=== PATIENT | male | born 1940 | race Caucasian/White ===

== ENCOUNTER 2017-12-20 17:37 | Inpatient (IN) | payer MEDICARE, MEDICAID ==
--- NOTE | 2017-12-20 17:59 | ED Physician Chart ---
ED Chief Complaint/HPI - Patient Information Date Seen:: 12/20/17 Time Seen:: 17:30 Chief Complaint:: AMS History of Present Illness:: onset x one day of ALOC and AMS with abnormal lab tests today; no report of trauma, H/As, S/T, neck pain, cough, C/P, SOB, Abd. Pain, A/N/V/D/C, fever, chills, or urinary s/s Historian:: Patient, EMS Review:: Nurse's Note Reviewed, Old Chart Reviewed, EMS run form Reviewed ED Review of Systems - Review of Systems General/Constitutional: Fever, No chills, No weight loss, No weakness, No diaphoresis, No edema, No loss of appetite Skin: No skin lesions, No rash, No bruising Head: No headache, No light-headedness Eyes: No loss of vision, No pain, No diplopia ENT: No earache, No nasal drainage, No sore throat, No tinnitus Neck: No neck pain, No swelling, No thyromegaly, No stiffness, No mass noted Cardio Vascular: No chest pain, No palpitations, No PND, No orthopnea, No edema Pulmonary: No SOB, No cough, No sputum, No wheezing GI: No nausea, No vomiting, No diarrhea, No pain, No melena, No hematochezia, No constipation, No hematemesis G/U: No dysuria, No frequency, No hematuria, No nacturia Musculoskeletal: No bone or joint pain, No back pain, No muscle pain Endocrine: No polyuria, No polydipsia Psychiatric: No prior psych history, No depression, No anxiety, No suicidal ideation, No homicidal ideation, No auditory hallucination, No visual hallucination Hematopoietic: No bruising, No lymphadenopathy Allergic/Immuno: No urticaria, No angioedema Neurological: No syncope, No focal symptoms, No weakness, No paresthesia, No headache, No seizure, No dizziness, Confusion, No vertigo ED Past Medical History - Past Medical History Obtainable: Yes Past Medical History: HTN, Dyslipidemia, Arthritis, Dementia Family History: HTN Social History: Non Smoker, No Alcohol, No Drug Use, Single, Care Facility Surgical History: PEG/GTube Psychiatricy History: Dementia Medication: Reviewed Family Medical History - Family Member Mother History Unknown: Yes ED Physical Exam - Physical Examination General/Constitutional: Awake, Well-developed, well-nourished, Alert, No distress, GCS 15, Non-toxic appearing, Ambulatory Head: Atraumatic Eyes: Lids, conjuctiva normal, PERRL, EOMI Skin: Nl inspection, No rash, No skin lesions, No ecchymosis, Well hydrated, No lymphadenopathy ENMT: External ears, nose nl, TM canals nl, Nasal exam nl, Lips, teeth, gums nl , Oropharynx nl, Tonsils nl Neck: Nontender, Full ROM w/o pain, No JVD, No nuchal rigidity, No bruit, No mass, No stridor Respiratory: Nl effort/Exclusion Other Respiratory comments:: Lungs: + Rales and Rhonchi Cardio Vascular: RRR, No murmur, gallop, rubs, NL S1 S2, Carotid/Femoral/Distal pulses equal bilaterally GI: No tenderness/rebounding/guarding, No organomegaly, No hernia, Normal BS's, Nondistended, No mass/bruits, No McBurney tenderness : No CVA tenderness Extremities: No tenderness or effusion, Full ROM, normal strength in all extremities, No edema, Normal digits & nails Neuro/Psych: Alert/oriented, DTR's symmetric, Normal sensory exam, Normal motor strength, Judgement/insight normal, Mood normal, Normal gait, No focal deficits Misc: Normal back, No paraspinal tenderness ED Labs/Radiology/EKG Results - Lab Results Comments:: WBC: 12.8; H/H: + Anemia; BUN: 88; Cr: 2.5; Na+: 132; K+: 5.4 - Radiology Results Comments:: CXR: + Infiltrate - EKG Interpretations EKG Time:: 18:30 Rate & Rhythm: 77; NSR Comments:: non-specific st-t changes ED Septic Shock - . Is Septic Shock (SBP<90, OR Lactate>4 mmol\L) present?: No ED Reassessment (Disposition) - Reassessment Reassessment Condition:: Improved - Diagnosis Diagnosis:: Dx: Anemia; Leukocytosis; AMS; ALOC; PNA; Sepsis; Hyperkalemia; Hyponatremia; Dehydration; Renal failure; Pre-Renal Azotemia - Aftercare/Follow up Instructions Aftercare/Follow-Up Instructions:: Counseled pt regarding lab results/diagnosis & need follow up, Counseled pt & family regarding lab results/diagnosis & need follow up - Patient Disposition Discharge/Transfer:: Acute Care w/in this hosp Accepting Physician:: Dr. Jamin Adams Time Called:: 1949 Time Responded:: 19:50 Admitted to:: Med/Surg Spoke to:: Dr. Jamin Adams Admitting Medical Physician:: Dr. Jamin Adams Condition at Disposition:: Stable, Improved
[2017-12-20 18:38] LABS: % BASOPHILS 0.5 % (0.0-2.0); % EOSINOPHILS 1.3 % (0.0-5.0); % LYMPHOCYTES 11.5 % (20.0-50.0); % NEUTROPHILS 79.7 % (40.0-80.0); BASOPHILE ABSOLUTE 0.1 Th/cumm (0-0.2); EOSINOPHILE ABSOLUTE 0.2 Th/cmm (0.1-0.4); HEMATOCRIT 33.9 % (41.0-60); HEMOGLOBIN 11.3 gm/dL (12-16); LYMPHOCYTE ABSOLUTE 1.5 Th/cmm (1.5-3.0); MEAN CELL VOLUME 87.7 fl (80-99); MEAN CORPUSCULAR HEMOGLOBIN 29.3 pg (27.0-31.0); MEAN CORPUSCULAR HGB CONC 33.4 pg (28.0-36.0); MONOCYTE ABSOLUTE 0.9 Th/cmm (0.3-1.0); NEUTROPHILE ABSOLUTE 10.1 Th/cmm (1.8-8.0); PLATELET COUNT 401 Th/cmm (150-400); RED BLOOD COUNT 3.87 Mil/cmm (3.80-5.80); RED CELL DISTRIBUTION WIDTH 13.2 % (11.5-20.0)
[2017-12-20 18:46] LABS: WHITE BLOOD COUNT 12.8 Th/cmm (4.8-10.8)
[2017-12-20 19:03] LABS: ALBUMIN 3.8 gm/dL (4.2-5.5); ALKALINE PHOSPHATASE 115 U/L (34-104); ANION GAP 14.9 (7.0-16.0); BILIRUBIN,TOTAL 0.4 mg/dL (0.3-1.0); CALCIUM SERUM 9.3 mg/dL (8.6-10.3); CARBON DIOXIDE 24.5 mEq/L (21.0-31.0); CHLORIDE 98 mEq/L (98-107); CREATININE - SERUM 2.5 mg/dL (0.7-1.3); GLUCOSE 163 mg/dL (70-105); POTASSIUM SERUM 5.4 mEq/L (3.5-5.1); SGOT 30 U/L (13-39); SGPT/ALT 60 U/L (7-52); SODIUM SERUM 132 mEq/L (136-145); TOTAL PROTEIN,SERUM 7.6 gm/dL (6.0-8.3)
[2017-12-20 19:04] LABS: CREATININE KINASE 44 U/L (30-223)
[2017-12-20 19:19] LABS: INR 0.94 (0.5-1.4); PROTHROMBIN TIME (TEST) 9.8 SECONDS (9.5-11.5)
[2017-12-20 19:31] LABS: URINE MICROSCOPIC INDICATED? YES; URINE SOURCE MIDSTREAM
[2017-12-20 19:35] LABS: URINE BILIRUBIN NEGATIVE (NEGATIVE); URINE BLOOD MODERATE (NEGATIVE); URINE GLUCOSE (UA) NEGATIVE (NEGATIVE); URINE KETONE TRACE mg/dL (NEGATIVE); URINE LEUKOCYTE ESTERASE MODERATE (NEGATIVE); URINE NITRATE NEGATIVE (NEGATIVE); URINE PH 5.5 (4.6 - 8.0); URINE PROTEIN 100 mg/dL (NEGATIVE); URINE UROBILINOGEN 0.2 E.U./dL (0.2 - 1.0)
[2017-12-20 19:58] LABS: BUN - UREA NITROGEN 88 mg/dL (7-25)
[2017-12-20] MEDS ORDERED: Levofloxacin 500mg/100mL 500 MG/100 ML BAG IV ONE ×2 (20:07→20:09)
[2017-12-20 20:32] LABS: URINE COLOR YELLOW
[2017-12-20 20:34] LABS: URINE CLARITY CLOUDY (CLEAR)
[2017-12-20 20:39] LABS: URINE EPITHELIAL CELLS NONE SEEN /lpf (FEW); URINE WBC >100 /hpf (0-5)
[2017-12-20 20:40] LABS: URINE BACTERIA MODERATE /hpf (NONE SEEN)
[2017-12-20] MEDS: Azithromycin 500 MG in Sodium Chloride 0.9% 250 ML IV SCH (23:39)
[2017-12-21] MEDS: cefTRIAXone 1 GM in Sodium Chloride 0.9% 50 ML IV SCH (05:34)
[2017-12-21] MEDS ORDERED: Sodium Chloride 0.9% 1,000 ML IV SCH (06:20)
[2017-12-21 06:37] VITALS: BP 114/50
--- NOTE | 2017-12-21 08:07 | Diagnostic Imaging Report ---
CHEST X-RAY: AP view INDICATION: pain COMPARISON: None FINDINGS: Mild chronic interstitial lung changes are noted. There is no focal consolidation or pleural effusions The heart is normal in size. There is minimal atherosclerosis of the aortic arch. Degenerative changes of the spine are noted. IMPRESSION: No focal consolidation identified. Mild chronic lung changes are noted. Minimal atherosclerosis of the aortic arch.
[2017-12-21] MEDS: INSULIN ASPART SLIDING SCALE 100 UNITS/ML UNIT SUBQ SCH ×3 (08:54→17:20)
[2017-12-21] MEDS ORDERED: Pneumococcal Vaccine 0.5 mL Vial IM ONE (10:00)
--- NOTE | 2017-12-21 10:47 | History and Physical ---
History of Present Illness - HPI Chief Complaint: Altered mental status HPI: A 77 year male with a past medical history of hypertension, hyperlipidemia, arthritis, coronary artery disease, dementia brought to the hospital for altered mental status, with abnormal labs. His WBC count 14,700 and has history of OCD positive. Chest x-ray also showed mild left lower lobe infiltrate. Urinalysis also showed pyuria and bacteriuria. Patient was started on levofloxacin. On initial evaluation, his temperature was 97.8F and WBC count was 12,800. 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: Dementia Musculoskeletal: Report: Osteoarthritis Family Medical History - Family Member Mother History Unknown: Yes Hx Family Hypertension: Yes (per ER MD notes) Social History Smoke: No Alcohol: None Drugs: None Lives: Retirement Domestic Violence: Negative - Medications Home Medications: Home Medication Medication Instructions Recorded Type Acetaminophen [Tylenol] 650 mg GT Q4HR PRN 12/20/17 History Albuterol/Ipratropium Neb [Duoneb 3 ml HHN Q4HR PRN 12/20/17 History Neb] Amino Acids/Protein Hydrolys 30 ml GT DAILY 12/20/17 History [Pro-Stat Sugar Free 887 ml] Aspirin [Aspirin Chewable] 81 mg GT DAILY 12/20/17 History Bisacodyl [Dulcolax 10 Mg Supp] 10 mg RC DAILY PRN 12/20/17 History Celecoxib [Celebrex] 200 mg GT BID 12/20/17 History Docusate Sodium [Colace] 100 mg GT BID 12/20/17 History Enalapril Maleate 10 mg GT DAILY 12/20/17 History Famotidine [Pepcid] 20 mg GT DAILY 12/20/17 History Ferrous Sulfate 330 mg GT BID 12/20/17 History Fleet Enema [Fleet Enema] 135 ml RC Q48H PRN 12/20/17 History Folic Acid/Vit Bcomp,C [Laurie-Agustin 1 tab GT DAILY 12/20/17 History Tablet] Lactobacillus Acidophilus 1 each PO DAILY 12/20/17 History [Acidophilus] Levothyroxine [Synthroid] 0.1 mg GT QDAC 12/20/17 History Magnesium Hydroxide [Milk of 30 ml GT HS PRN 12/20/17 History Magnesia] Magnesium Hydroxide [Milk of 30 ml GT Q72H PRN 12/20/17 History Magnesia] Memantine HCl 10 mg GT Q12H 12/20/17 History Sennosides A and B [Senna] 2 tab GT HS 12/20/17 History Zinc Sulfate 220 mg GT DAILY 12/20/17 History - Allergies Allergies/Adverse Reactions: Allergies Allergy/AdvReac Type Severity Reaction Status Date / Time No Known Allergies Allergy Verified 12/20/17 17:57 Review of Systems - Review of Systems Constitutional: Report: No Significant Eyes: Report: No Significant ENT: Report: No Significant Respiratory: Report: No Significant Cardiovascular: Report: No Significant Gastrointestinal: Report: No Significant Genitourinary: Report: No Significant Musculoskeletal: Report: No Significant Skin: Report: No Significant Neurological: Report: No Significant, Confusion Physical Exam - Physical Exam HEENT: Report: Ears Nose Throat within normal limits Neck: Report: Within normal limits Cardiovascular Systems: Report: +s1/s2 noted Respiratory: Report: Breath Sounds are within normal limits Abdomen: Report: Non-tender to palpation Back: Report: Inspection of back is within normal limits. Extremities: Report: Non-tender to palpation. Skin: Report: Color of skin is within normal limits Neuro/Psych: Report: Mood affect is within normal limits - Lab Results All Lab Results last 24 hours: Laboratory Results - last 24 hr 12/21/17 05:54 POC Glucose 189 H - Assessment Assessment: Current Active Problems Problem Status Onset ELEVATED WBC WITH COUGH Acute 1. Left lower lobe pneumonia. 2. UTI. 3. Leukocytosis. 4. Hypertension. 5. Hyperlipidemia 6. Dementia. 7. Chronic lung changes. - Plan Plan: Start Rocephin and the Zithromax. Continue same medication. Consults: Dr. Roshan Adams, pulmonary for chronic lung changes. And Dr. Adams, cardiology consult for carotid disease and hypertension.
[2017-12-21] MEDS: Albuterol/Ipratropium Neb 3 ML AERS HHN SCH ×2 (15:15→19:19)
[2017-12-21 16:04] LABS: EOSINOPHIL SMEAR SOURCE URINE; EOSINOPHILS SMEAR COUNT NONE SEEN (NONE SEEN)
[2017-12-21] MEDS: Sodium Chloride 0.9% 1,000 ML IV SCH (17:27)
[2017-12-21] MEDS: Azithromycin 500 MG in Sodium Chloride 0.9% 250 ML IV SCH (22:32)
--- NOTE | 2017-12-21 23:56 | Consultation ---
DATE OF CONSULTATION: 12/21/[address] Juwan Adams. HISTORY AND PHYSICAL: This is a 77-year-old male patient who was transferred from [facility] with respiratory failure. The patient was found to have pneumonia, urinary tract infection. The patient also complained of some chest pain at this time. Cardiac consult is requested. PAST MEDICAL HISTORY: Angina, iron-deficiency anemia, diabetes mellitus type 2, diabetic CKD stage 3, hypertension, schizophrenia, dysphagia with PEG placement, protein-calorie malnutrition, hypothyroidism. FAMILY HISTORY: Unremarkable. SOCIAL HISTORY: No history of smoking, alcohol abuse. ALLERGIES: No known allergies. PHYSICAL EXAMINATION: VITAL SIGNS: Blood pressure 130/80, pulse 70, respirations 20. HEAD: Normocephalic. No lumps or bumps. EYES: Pupils equal, reactive to light. Fundi show AV nicking, sclerae white, conjunctivae pink. NECK: Carotid 2+. Normal upstroke. JVD flat. Thyroid not palpable. Lymph nodes not palpable. CHEST: Shows increased AP diameter. No kyphosis, scoliosis. LUNGS: Bilateral bronchovesicular breath sounds. HEART: PMI fifth intercostal space with lateral to midclavicular line. S1, S2. No S3, S4, soft systolic murmur. ABDOMEN: Soft. Liver, spleen not palpable. The patient has a PEG in place. NEUROLOGIC: Unremarkable. EXTREMITIES: Peripheral pulses 2+. No pedal edema. CLINICAL IMPRESSION: Pneumonia, urinary tract infection, angina, iron deficiency anemia, diabetes mellitus type 2, diabetic chronic kidney disease stage 3, hypertension, schizophrenia, dysphagia with PEG placement, protein-calorie malnutrition, hypothyroidism. PLAN: We will get EKG, echocardiogram, IV antibiotics and get BNP level. Please monitor the patient closely on telemetry bed. JOB# [id number]
[2017-12-22] MEDS: INSULIN ASPART SLIDING SCALE 100 UNITS/ML UNIT SUBQ SCH ×4 (01:35→18:00)
[2017-12-22] MEDS: Sodium Chloride 0.9% 1,000 ML IV SCH ×3 (01:36→22:34)
--- NOTE | 2017-12-22 02:08 | Progress Notes ---
DATE: 12/21/2017 PULMONARY CONSULTATION REASON FOR CONSULTATION: Abnormal chest x-ray. CONSULT NOTE: This is a 77-year-old gentleman who basically has been admitted up here because of suspected pneumonia as well as shortness of breath and also history of fever and leukocytosis. The patient is awake, alert, quite confused. Meaningful history from the patient is not available to me as he only mumbles. No other medical illness related symptomatology could be obtained. PAST MEDICAL HISTORY: History of dementia, history of hypertension, history of diabetes type 2, history of chronic renal failure, otherwise unremarkable. SMOKING AND ALLERGIC HISTORY: Not available at this particular time. PHYSICAL EXAMINATION: GENERAL: This is an elderly looking gentleman, mumbling, no respiratory distress, etc. VITAL SIGNS: The patient's recorded vitals, temperature is 98.0, blood pressure 120/60, saturation 96. HEENT: Examination of the head is essentially unremarkable. Pupils appear to be equal and reacting to light. Conjunctivae slightly pallor. Mouth shows edentulous with coated tongue. NECK: No nodes in the neck could be palpated. CHEST: Shows occasional secretory noise with diminished air entry. HEART: Regular. EXTREMITIES: Show right upper extremities with lot of contractures of the hands and no peripheral edema. LABORATORY DATA: The patient's chest x-ray shows some heavy bronchovascular marking on the left base, appears to be probably chronic, though acute cannot be ruled out. The patient's white count is 12.8. BUN is 28 and creatinine is 2.5. Glucose is 163. Urine does show some blood with elevated white count with moderate bacteria. IMPRESSION: 1. The patient has abnormal chest x-ray, not too sure whether this is acute on chronic. 2. The patient is quite dehydrated. 3. Possibly urosepsis with history of underlying Alzheimer's. 4. Dysphagia. 5. Aphasia. PLANS AND SUGGESTIONS: Hydrate the patient. We will give aggressive respiratory care. Continue Rocephin and Zithromax. After hydration, possibly repeat chest x-ray and see how he does and go from there. JOB# [id number]
[2017-12-22 05:34] LABS: % EOSINOPHILS 4.8 % (0.0-5.0); % LYMPHOCYTES 18.5 % (20.0-50.0); % MONOCYTES 10.4 % (2.0-10.0); % NEUTROPHILS 65.3 % (40.0-80.0); BASOPHILE ABSOLUTE 0.1 Th/cumm (0-0.2); EOSINOPHILE ABSOLUTE 0.4 Th/cmm (0.1-0.4); HEMATOCRIT 28.7 % (41.0-60); HEMOGLOBIN 9.7 gm/dL (12-16); LYMPHOCYTE ABSOLUTE 1.4 Th/cmm (1.5-3.0); MEAN CELL VOLUME 87.1 fl (80-99); MEAN CORPUSCULAR HEMOGLOBIN 29.4 pg (27.0-31.0); MEAN CORPUSCULAR HGB CONC 33.7 pg (28.0-36.0); MEAN PLATELET VOLUME 7.6 fl; MONOCYTE ABSOLUTE 0.8 Th/cmm (0.3-1.0); NEUTROPHILE ABSOLUTE 4.9 Th/cmm (1.8-8.0); PLATELET COUNT 301 Th/cmm (150-400); RED BLOOD COUNT 3.29 Mil/cmm (3.80-5.80); RED CELL DISTRIBUTION WIDTH 13.2 % (11.5-20.0); WHITE BLOOD COUNT 7.6 Th/cmm (4.8-10.8)
[2017-12-22 05:45] LABS: ANION GAP 10.7 (7.0-16.0); BUN - UREA NITROGEN 47 mg/dL (7-25); CALCIUM SERUM 8.7 mg/dL (8.6-10.3); CARBON DIOXIDE 25.4 mEq/L (21.0-31.0); CHLORIDE 109 mEq/L (98-107); CREATININE - SERUM 1.4 mg/dL (0.7-1.3); GLUCOSE 104 mg/dL (70-105); MAGNESIUM 2.3 mg/dL (1.9-2.7); POTASSIUM SERUM 4.1 mEq/L (3.5-5.1); SODIUM SERUM 141 mEq/L (136-145); URIC ACID 7.7 mg/dL (4.4-7.6)
[2017-12-22] MEDS: cefTRIAXone 1 GM in Sodium Chloride 0.9% 50 ML IV SCH (07:04)
[2017-12-22] MEDS: Albuterol/Ipratropium Neb 3 ML AERS HHN SCH ×4 (07:17→19:05)
--- NOTE | 2017-12-22 08:26 | Consultation ---
DATE OF CONSULTATION: 12/21/2017 FRONT DESK SPECIALIST: Arron Leggett MD REASON FOR CONSULTATION: Worsening kidney function, electrolyte imbalance and fluid management. HISTORY OF PRESENT ILLNESS: This is a 77-year-old male with past medical history of chronic kidney disease, who was brought in because of altered level of consciousness. One day prior to admission, the patient was noted to have progressive altered mental status. His chest x-ray revealed mild left lower lobe infiltrate, urinalysis was suggestive of UTI. He had a CBC done, which revealed a white count of 14.7, and also stool for C. diff was positive. A few hours prior to admission, his condition deteriorated and he was brought to Emergency Room. His white count was 12.8. Chest x-ray revealed no focal consolidation. Shiga toxin 2 were negative. Urinalysis confirmed the presence of a complicated UTI. Labs drawn at [facility] showed a BUN/creatinine of 72/1.83. However, labs drawn at the Emergency Room revealed a BUN/creatinine of 88/2.5, sodium of 132, potassium of 5.4. He had no history of nausea and vomiting. No recent diarrhea. PAST MEDICAL HISTORY: 1. Chronic kidney disease. 2. History of metabolic encephalopathy. 3. Coronary artery disease. 4. Anemia of chronic disease. 5. Type 2 diabetes mellitus. 6. Essential hypertension. 7. Hyponatremia. 8. Schizophrenia. 9. Dementia without behavioral disturbance. 10. Hypothyroidism. 11. GERD with esophagitis. CURRENT MEDICATIONS: He is currently on acetaminophen, azithromycin, ceftriaxone, lorazepam. ALLERGIES: No known drug allergies. SOCIAL AND FAMILY HISTORY: I was not able to obtain directly from the patient because of his dementia. REVIEW OF SYSTEMS: Again, I was not able to decipher directly from the patient because of his confusion. PHYSICAL EXAMINATION: GENERAL: The patient is awake, but confused, talkative. VITAL SIGNS: Blood pressure is 120/60, pulse is 80, temperature 97.3 degrees. SKIN: Poor turgor, warm, no rash, no jaundice appreciated. HEENT: Head normocephalic, atraumatic. Eyes, extraocular muscles intact. Pupils equal, round, and reactive to light and accommodates. Anicteric sclerae. Pale conjunctivae. Nose, midline nasal septum. Mouth; dry mucosa, poor dentition. NECK: Supple, no adenopathy, no thyromegaly, no bruits. Trachea palpated in the midline. CHEST AND CARDIOVASCULAR SYSTEM: S1, S2. No rub, murmur nor gallop appreciated. Point of maximal impulse fifth intercostal space, left midclavicular line. No abdominal or femoral bruits appreciated. LUNGS: Equal expansion. No use of accessory muscles. No supraclavicular retractions. Decreased breath sounds, few rhonchi, but no rales nor wheezes appreciated. ABDOMEN: Mildly globular, soft. Positive for bowel sounds. No bruits either diastolic or systolic. RECTAL: Lax sphincter tone. GENITOURINARY: Normal appearing male genitalia. MUSCULOSKELETAL: No effusions present in his joints, but unable to assess his range of motion. EXTREMITIES: No evidence of edema, cyanosis nor clubbing with palpable femoral, but unable to fully appreciate popliteal and dorsalis pedis pulses. NEUROLOGIC: The patient as mentioned is awake, but remains confused, so I was not able to pursue further my neuro exam. LABORATORY DATA: Labs did reveal sodium 132, potassium 5.4, chloride 98, bicarb 24, BUN 88, creatinine 2.5, glucose 163, calcium is 9.3, albumin 3.8. White count 12.8, hemoglobin 11.3, hematocrit 33.9, platelets 401. IMPRESSION: 1. Acute kidney injury on chronic kidney disease. The patient had altered mental status for several days. Even though, he had G-tube feeding, this may not be enough to replenish both sensible and insensible fluid losses. He had developed prerenal azotemia. Physical exam revealed poor skin turgor, dry oral mucosa and lab revealed very concentrated urine. He developed dehydration, which led to progression of prerenal azotemia to acute tubular injury. He also has underlying complicated urinary tract infection, which could lead to development of acute interstitial nephritis. 2. Altered level of consciousness, likely metabolic encephalopathy secondary to ongoing sepsis. 3. Sepsis secondary to complicated urinary tract infection. 4. Chronic hyponatremia secondary to syndrome of inappropriate antidiuretic hormone. 5. Hyperkalemia secondary to kidney failure. 6. Coronary artery disease. 7. Anemia of chronic disease. 8. Type 2 diabetes mellitus with chronic kidney disease. 9. Essential hypertension with chronic kidney disease. 10. Schizophrenia. PLAN: 1. Renal ultrasound. 2. Urine spot sodium, eosinophils and creatinine. 3. Urine microalbumin to creatinine ratio. 4. Serum osmolarity along with uric acid. 5. Continue IV fluids. 6. Follow up electrolytes. 7. Kayexalate as needed. [facility]# [id number]
--- NOTE | 2017-12-22 09:57 | Diagnostic Imaging Report ---
Portable chest x-ray Time: 0905 hours History: Pneumonia COMPARISON to prior study 12/20/2017 Findings: Allowing for portable technique the heart size is normal. No focal pulmonary parenchymal processes. No hilar or mediastinal abnormalities. Impression: No acute abnormalities.
[2017-12-22 11:11] LABS: ALLEN TEST P
[2017-12-22 11:29] LABS: CREATININEURINE 63.6 mg/dl
[2017-12-22 11:30] LABS: MICROALBUMIN RANDOM RUINE 58.8
--- NOTE | 2017-12-22 12:51 | Diagnostic Imaging Report ---
Renal ultrasound HISTORY: Abnormal renal function test, urinary tract infection The right kidney measures 11.2 x 5.0 x 6.0 cm. No focal lesions. No hydronephrosis. The left kidney is normal in size (10.0 x 4.5 x 4.6 cm is). No focal lesions. No hydronephrosis. The urinary bladder cannot be well evaluated due to lack of distention. IMPRESSION: Normal examination of the kidneys
--- NOTE | 2017-12-22 13:14 | Infectious Disease Prog Note ---
Infectious Disease Subjective - Review of Systems Service Date: 12/22/17 Subjective: No new change, no fever. Infectious Disease Objective - Results Result Diagrams: 12/22/17 05:10 12/22/17 05:10 Recent Labs: Laboratory Last Values WBC 7.6 Th/cmm (4.8-10.8) 12/22/17 05:10 RBC 3.29 Mil/cmm (3.80-5.80) L 12/22/17 05:10 Hgb 9.7 gm/dL (12-16) L 12/22/17 05:10 Hct 28.7 % (41.0-60) L 12/22/17 05:10 MCV 87.1 fl (80-99) 12/22/17 05:10 MCH 29.4 pg (27.0-31.0) 12/22/17 05:10 MCHC Differential 33.7 pg (28.0-36.0) 12/22/17 05:10 RDW 13.2 % (11.5-20.0) 12/22/17 05:10 Plt Count 301 Th/cmm (150-400) 12/22/17 05:10 MPV 7.6 fl 12/22/17 05:10 Neutrophils % 65.3 % (40.0-80.0) 12/22/17 05:10 Lymphocytes % 18.5 % (20.0-50.0) L 12/22/17 05:10 Monocytes % 10.4 % (2.0-10.0) H 12/22/17 05:10 Eosinophils % 4.8 % (0.0-5.0) 12/22/17 05:10 Basophils % 1.0 % (0.0-2.0) 12/22/17 05:10 Eos Smear Source URINE 12/21/17 13:30 Eos Smear Total Cells NONE SEEN (NONE SEEN) 12/21/17 13:30 PT 9.8 SECONDS (9.5-11.5) 12/20/17 18:10 INR 0.94 (0.5-1.4) 12/20/17 18:10 PTT (Actin FS) 26.9 SECONDS (26.0-38.0) 12/20/17 18:10 Specimen Source ARTERIAL 12/22/17 10:58 Sample Site Left Radial 12/22/17 10:58 pH 7.40 (7.35-7.45) 12/22/17 10:58 pCO2 37.0 mmHg (35.0-45.0) 12/22/17 10:58 pO2 63.0 mmHg (80.0-100.0) L 12/22/17 10:58 HCO3 25.0 mEq/L (20.0-26.0) 12/22/17 10:58 Base Excess 1.0 mEq/L (-3.0-3.0) 12/22/17 10:58 O2 Saturation 93.0 % (92.0-100.0) 12/22/17 10:58 Bradford Test P 12/22/17 10:58 Vent Rate N/A 12/22/17 10:58 Inspired O2 21 12/22/17 10:58 Tidal Volume N/A 12/22/17 10:58 PEEP N/A 12/22/17 10:58 Pressure (ins/psv/peep) N/A 12/22/17 10:58 Critical Value O.KAMARA 12/22/17 10:58 Sodium 141 mEq/L (136-145) 12/22/17 05:10 Potassium 4.1 mEq/L (3.5-5.1) 12/22/17 05:10 Chloride 109 mEq/L (98-107) H 12/22/17 05:10 Carbon Dioxide 25.4 mEq/L (21.0-31.0) 12/22/17 05:10 Anion Gap 10.7 (7.0-16.0) 12/22/17 05:10 BUN 47 mg/dL (7-25) H 12/22/17 05:10 Creatinine 1.4 mg/dL (0.7-1.3) H 12/22/17 05:10 Est GFR ( Amer) TNP 12/22/17 05:10 Est GFR (Non-Af Amer) TNP 12/22/17 05:10 BUN/Creatinine Ratio 33.6 12/22/17 05:10 Glucose 104 mg/dL (70-105) 12/22/17 05:10 POC Glucose 117 MG/DL (70 - 105) H 12/22/17 07:00 Whole Bld Lactic Acid 1.22 mmol/L (0.60-1.99) 12/20/17 18:10 Uric Acid 7.7 mg/dL (4.4-7.6) H 12/22/17 05:10 Calcium 8.7 mg/dL (8.6-10.3) 12/22/17 05:10 Phosphorus 3.0 mg/dL (2.5-5.0) 12/22/17 05:10 Magnesium 2.3 mg/dL (1.9-2.7) 12/22/17 05:10 Total Bilirubin 0.4 mg/dL (0.3-1.0) 12/20/17 18:10 AST 30 U/L (13-39) 12/20/17 18:10 ALT 60 U/L (7-52) H 12/20/17 18:10 Alkaline Phosphatase 115 U/L (34-104) H 12/20/17 18:10 Creatine Kinase 44 U/L (30-223) 12/20/17 18:10 Troponin I 0.01 ng/mL (0.01-0.05) 12/20/17 18:10 B-Natriuretic Peptide 18.4 pg/mL (5.0-100.0) 12/22/17 05:10 Total Protein 7.6 gm/dL (6.0-8.3) 12/20/17 18:10 Albumin 3.8 gm/dL (4.2-5.5) L 12/20/17 18:10 Globulin 3.8 gm/dL 12/20/17 18:10 Albumin/Globulin Ratio 1.0 (1.0-1.8) 12/20/17 18:10 TSH 0.43 uIU/ml (0.34-5.60) 12/22/17 05:10 Urine Source MIDSTREAM 12/20/17 18:35 Urine Color YELLOW 12/20/17 18:35 Urine Clarity CLOUDY (CLEAR) 12/20/17 18:35 Urine pH 5.5 (4.6 - 8.0) 12/20/17 18:35 Ur Specific [place] 1.025 (1.005-1.030) 12/20/17 18:35 Urine Protein 100 mg/dL (NEGATIVE) H 12/20/17 18:35 Urine Glucose (UA) NEGATIVE mg/dL (NEGATIVE) 12/20/17 18:35 Urine Ketones TRACE mg/dL (NEGATIVE) 12/20/17 18:35 Urine Blood MODERATE (NEGATIVE) H 12/20/17 18:35 Urine Nitrate NEGATIVE (NEGATIVE) 12/20/17 18:35 Urine Bilirubin NEGATIVE (NEGATIVE) 12/20/17 18:35 Urine Urobilinogen 0.2 E.U./dL (0.2 - 1.0) 12/20/17 18:35 Ur Leukocyte Esterase MODERATE (NEGATIVE) H 12/20/17 18:35 Urine RBC 5-10 /hpf (0-5) H 12/20/17 18:35 Urine WBC >100 /hpf (0-5) H 12/20/17 18:35 Ur Epithelial Cells NONE SEEN /lpf (FEW) 12/20/17 18:35 Urine Bacteria MODERATE /hpf (NONE SEEN) H 12/20/17 18:35 Ur Random Sodium 66 mmol/L 12/21/17 13:30 Urine Creatinine 63.6 mg/dl 12/21/17 13:30 Urine Microalbumin 58.8 12/21/17 13:30 Microalb/Creat Ratio 92.5 12/21/17 13:30 - Physical Exam Vitals and I&O: Vital Signs Temp 97.0 F 12/22/17 12:29 Pulse 90 12/22/17 12:29 Resp 20 12/22/17 12:29 BP 121/60 12/22/17 12:29 Pulse Ox 100 12/22/17 12:29 Intake & Output 12/21/17 12/22/17 12/22/17 18:59 06:59 18:59 Intake Total 2049 Balance 2049 Weight (lbs) 54.431 kg 58.151 kg 58.513 kg Intake: Intake, IV Amount 1250 Azithromycin 500 mg In 250 Sodium Chloride 0.9% 250 ml @ 250 mls/hr IV DAILY@ 2300 [facility] Rx#:[id number] Sodium Chloride 0.9% 1, 1000 000 ml @ 100 mls/hr IV . Q10H [facility] Rx#:[id number] Tube Feeding 800 Other: # Voids 700 # Bowel Movements 3 Stool Characteristics Soft Soft Soft Formed Formed Formed Green Green Brown Weight Source Bedscale Bedscale Bedscale Active Medications: Current Medications Acetaminophen (Tylenol 650mg/20.3ml Suspension) 650 mg PO Q4H PRN PRN Reason: Mild pain/Fever >=100F Stop: 02/19/18 04:28 Last Admin: 12/21/17 05:37 Dose: 650 mg Albuterol/Ipratropium (Duoneb Neb) 3 ml HHN [id number] [facility] Stop: 02/19/18 14:59 Last Admin: 12/22/17 11:25 Dose: 3 ml Azithromycin 500 mg/ Sodium (Chloride) 250 mls @ 250 mls/hr IV DAILY@2300 [facility] Stop: 02/18/18 22:59 Last Infusion: 12/21/17 23:32 Dose: Infused Ceftriaxone Sodium 1 gm/ (Sodium Chloride) 50 mls @ 100 mls/hr IV Q24HR [facility] Stop: 02/19/18 05:59 Last Admin: 12/22/17 07:04 Dose: 100 mls/hr Sodium Chloride (Nacl 0.9%) 1,000 mls @ 100 mls/hr IV .Q10H [facility] Stop: 02/19/18 13:14 Last Admin: 12/22/17 11:31 Dose: 100 mls/hr Insulin Aspart (Novolog Insulin Sliding Scale) 0 units SUBQ Q6HR [facility] PRN Reason: Protocol Stop: 02/19/18 07:36 Last Admin: 12/22/17 12:29 Dose: 4 units Lorazepam (Ativan) 0.5 mg IVP Q6HR PRN; Protocol PRN Reason: Anxiety Stop: 02/19/18 07:41 Last Admin: 12/22/17 07:05 Dose: 0.5 mg General: no acute distress, well developed, well nourished HEENT: atraumatic, normocephalic, PERRLA Neck: supple, no thyromegaly Cardiovascular: S1S2, regular Lungs: clear to auscultation bilaterally, clear to percussion Abdomen: soft, no tender, no distended Extremities: no cyanosis, no clubbing, no edema Neurological: awake, alert, oriented Skin: intact Infectious Disease Assmt/Plan - Problem List Patient Problems: All Active Problems ELEVATED WBC WITH COUGH (Acute) - Assessment Assessment: Current Active Problems Problem Status Onset ELEVATED WBC WITH COUGH Acute 1. Left lower lobe pneumonia. 2. UTI. 3. Leukocytosis. improved. 4. Elevated BUN/creatinine, AK I resolving. 5. Hyperlipidemia 6. Dementia. 7. Chronic lung changes. 8. Hypertension. 9. Diabetes mellitus type 2 10. C diff toxin positive, but there is no diarrhea. likely carrier stage. - Plan Plan: Conitnue Rocephin and Zithromax. Continue same medication. DVT prophylaxis. DC planning. Nutritional Asmnt/Malnutr-PDOC - Dietary Evaluation Malnutrition Findings (Please click <Entered> for more info): Nutritional Asmnt/Malnutrition Start: 12/21/17 15: 47 Text: Status: Active Freq: Document 12/21/17 15:47 [facility] (Rec: 12/21/17 16:07 [facility] Nutritional Asmnt/Malnutrition Patient General Information Nutritional Screening High Risk Diagnosis PNA, UTI Pertinent Medical Hx/Surgical Hx HTn, dyslipidemia, arthritis, dementia, PEG/Gtube Subjective Information Pt seen resting in bed at time of visit. TF running at 60ml/ hr. Current Diet Order/ Nutrition Support Diabetisource AC 60ml/hr x 20hr, providing 1440kcal and 72g protein Pertinent Medications novolog, Nacl 0.9% Pertinent Labs 5/ Na 132, K 5.4, BUN 88, Cr 2.5, glucose 163, 5/3 POC 160-189 Nutritional Hx/Data Height 1.68 m Height (Calculated Centimeters) 167.6 Current Weight (lbs) 54.431 kg Weight (Calculated Kilograms) 54.4 Weight (Calculated Grams) 59490.1 [place] Body Weight 142 Body Mass Index (BMI) 19.3 Weight Status Approriate GI Symptoms GI Symptoms Diarrhea Last BM 5/3 x 3 Skin Integrity/Comment: ecchymosis at bilateral upper extremities Estimated Nutritional Goals BEE in Kcals: Using Current wt Calories/Kcals/Kg 25-30 Kcals Calculated 2252-7573 Protein: Using Current wt Protein g/k.1-1.3 Protein Calculated 60-72 Fluid: ml 1485-1760ml (1ml/kcal) Nutritional Problem 1. Problem Problem altered nutrition related labs Etiology electrolytes imbalance, renal dysfunction, hyperglycemia Signs/Symptoms: Na 132, K 5.4, BUN 88, Cr 2.5, glucose 163, POC 160-189 Malnutrition Alert Protein-Calorie Malnutrition N/A Is there a minimum of two criteria No selected? Query Text:Check all the applicable criteria. A minimum of two criteria are recommended for diagnosis of either severe or non-severe malnutrition. Intervention/Recommendation Comments 1. Considering decrease TF rate to 55ml/hr x 20hr, providing 1320kcal and 66g protein, if BUN/Cr, glucose continue high. 2. Monitor TF rate, tolerance, wt weekly, skin integrity and labs 3. F/U as high risk in 2-3 days, 12/23-12/24 Expected Outcomes/Goals Expected Outcomes/Goals 1. Pt to meet at least 75% of nutritional needs via nutrition support with tolerance 2. Wt stability, skin to remain intact, labs to approach WNL.
--- NOTE | 2017-12-22 15:27 | General Progress Note ---
Subjective - Review of Systems Service Date: 12/22/17 Subjective: sleeping, was agitated early today Objective - Results Result Diagrams: 12/22/17 05:10 12/22/17 05:10 Recent Labs: Laboratory Last Values WBC 7.6 Th/cmm (4.8-10.8) 12/22/17 05:10 RBC 3.29 Mil/cmm (3.80-5.80) L 12/22/17 05:10 Hgb 9.7 gm/dL (12-16) L 12/22/17 05:10 Hct 28.7 % (41.0-60) L 12/22/17 05:10 MCV 87.1 fl (80-99) 12/22/17 05:10 MCH 29.4 pg (27.0-31.0) 12/22/17 05:10 MCHC Differential 33.7 pg (28.0-36.0) 12/22/17 05:10 RDW 13.2 % (11.5-20.0) 12/22/17 05:10 Plt Count 301 Th/cmm (150-400) 12/22/17 05:10 MPV 7.6 fl 12/22/17 05:10 Neutrophils % 65.3 % (40.0-80.0) 12/22/17 05:10 Lymphocytes % 18.5 % (20.0-50.0) L 12/22/17 05:10 Monocytes % 10.4 % (2.0-10.0) H 12/22/17 05:10 Eosinophils % 4.8 % (0.0-5.0) 12/22/17 05:10 Basophils % 1.0 % (0.0-2.0) 12/22/17 05:10 Eos Smear Source URINE 12/21/17 13:30 Eos Smear Total Cells NONE SEEN (NONE SEEN) 12/21/17 13:30 PT 9.8 SECONDS (9.5-11.5) 12/20/17 18:10 INR 0.94 (0.5-1.4) 12/20/17 18:10 PTT (Actin FS) 26.9 SECONDS (26.0-38.0) 12/20/17 18:10 Specimen Source ARTERIAL 12/22/17 10:58 Sample Site Left Radial 12/22/17 10:58 pH 7.40 (7.35-7.45) 12/22/17 10:58 pCO2 37.0 mmHg (35.0-45.0) 12/22/17 10:58 pO2 63.0 mmHg (80.0-100.0) L 12/22/17 10:58 HCO3 25.0 mEq/L (20.0-26.0) 12/22/17 10:58 Base Excess 1.0 mEq/L (-3.0-3.0) 12/22/17 10:58 O2 Saturation 93.0 % (92.0-100.0) 12/22/17 10:58 Bradford Test P 12/22/17 10:58 Vent Rate N/A 12/22/17 10:58 Inspired O2 21 12/22/17 10:58 Tidal Volume N/A 12/22/17 10:58 PEEP N/A 12/22/17 10:58 Pressure (ins/psv/peep) N/A 12/22/17 10:58 Critical Value O.KAMARA 12/22/17 10:58 Sodium 141 mEq/L (136-145) 12/22/17 05:10 Potassium 4.1 mEq/L (3.5-5.1) 12/22/17 05:10 Chloride 109 mEq/L (98-107) H 12/22/17 05:10 Carbon Dioxide 25.4 mEq/L (21.0-31.0) 12/22/17 05:10 Anion Gap 10.7 (7.0-16.0) 12/22/17 05:10 BUN 47 mg/dL (7-25) H 12/22/17 05:10 Creatinine 1.4 mg/dL (0.7-1.3) H 12/22/17 05:10 Est GFR ( Amer) TNP 12/22/17 05:10 Est GFR (Non-Af Amer) TNP 12/22/17 05:10 BUN/Creatinine Ratio 33.6 12/22/17 05:10 Glucose 104 mg/dL (70-105) 12/22/17 05:10 POC Glucose 117 MG/DL (70 - 105) H 12/22/17 07:00 Whole Bld Lactic Acid 1.22 mmol/L (0.60-1.99) 12/20/17 18:10 Uric Acid 7.7 mg/dL (4.4-7.6) H 12/22/17 05:10 Calcium 8.7 mg/dL (8.6-10.3) 12/22/17 05:10 Phosphorus 3.0 mg/dL (2.5-5.0) 12/22/17 05:10 Magnesium 2.3 mg/dL (1.9-2.7) 12/22/17 05:10 Total Bilirubin 0.4 mg/dL (0.3-1.0) 12/20/17 18:10 AST 30 U/L (13-39) 12/20/17 18:10 ALT 60 U/L (7-52) H 12/20/17 18:10 Alkaline Phosphatase 115 U/L (34-104) H 12/20/17 18:10 Creatine Kinase 44 U/L (30-223) 12/20/17 18:10 Troponin I 0.01 ng/mL (0.01-0.05) 12/20/17 18:10 B-Natriuretic Peptide 18.4 pg/mL (5.0-100.0) 12/22/17 05:10 Total Protein 7.6 gm/dL (6.0-8.3) 12/20/17 18:10 Albumin 3.8 gm/dL (4.2-5.5) L 12/20/17 18:10 Globulin 3.8 gm/dL 12/20/17 18:10 Albumin/Globulin Ratio 1.0 (1.0-1.8) 12/20/17 18:10 TSH 0.43 uIU/ml (0.34-5.60) 12/22/17 05:10 Urine Source MIDSTREAM 12/20/17 18:35 Urine Color YELLOW 12/20/17 18:35 Urine Clarity CLOUDY (CLEAR) 12/20/17 18:35 Urine pH 5.5 (4.6 - 8.0) 12/20/17 18:35 Ur Specific [place] 1.025 (1.005-1.030) 12/20/17 18:35 Urine Protein 100 mg/dL (NEGATIVE) H 12/20/17 18:35 Urine Glucose (UA) NEGATIVE mg/dL (NEGATIVE) 12/20/17 18:35 Urine Ketones TRACE mg/dL (NEGATIVE) 12/20/17 18:35 Urine Blood MODERATE (NEGATIVE) H 12/20/17 18:35 Urine Nitrate NEGATIVE (NEGATIVE) 12/20/17 18:35 Urine Bilirubin NEGATIVE (NEGATIVE) 12/20/17 18:35 Urine Urobilinogen 0.2 E.U./dL (0.2 - 1.0) 12/20/17 18:35 Ur Leukocyte Esterase MODERATE (NEGATIVE) H 12/20/17 18:35 Urine RBC 5-10 /hpf (0-5) H 12/20/17 18:35 Urine WBC >100 /hpf (0-5) H 12/20/17 18:35 Ur Epithelial Cells NONE SEEN /lpf (FEW) 12/20/17 18:35 Urine Bacteria MODERATE /hpf (NONE SEEN) H 12/20/17 18:35 Ur Random Sodium 66 mmol/L 12/21/17 13:30 Urine Creatinine 63.6 mg/dl 12/21/17 13:30 Urine Microalbumin 58.8 12/21/17 13:30 Microalb/Creat Ratio 92.5 12/21/17 13:30 - Physical Exam Vitals and I&O: Vital Signs Temp 97.0 F 12/22/17 12:29 Pulse 90 12/22/17 14:34 Resp 18 12/22/17 14:34 BP 121/60 12/22/17 12:29 Pulse Ox 100 12/22/17 14:34 Intake & Output 12/21/17 12/22/17 12/22/17 18:59 06:59 18:59 Intake Total 2049 Balance 2049 Weight (lbs) 54.431 kg 58.151 kg 58.513 kg Intake: Intake, IV Amount 1250 Azithromycin 500 mg In 250 Sodium Chloride 0.9% 250 ml @ 250 mls/hr IV DAILY@ 2300 [facility] Rx#:[id number] Sodium Chloride 0.9% 1, 1000 000 ml @ 100 mls/hr IV . Q10H [facility] Rx#:[id number] Tube Feeding 800 Other: # Voids 700 # Bowel Movements 3 Stool Characteristics Soft Soft Soft Formed Formed Formed Green Green Brown Weight Source Bedscale Bedscale Bedscale Active Medications: Current Medications Acetaminophen (Tylenol 650mg/20.3ml Suspension) 650 mg PO Q4H PRN PRN Reason: Mild pain/Fever >=100F Stop: 02/19/18 04:28 Last Admin: 12/21/17 05:37 Dose: 650 mg Albuterol/Ipratropium (Duoneb Neb) 3 ml HHN [id number] [facility] Stop: 02/19/18 14:59 Last Admin: 12/22/17 14:32 Dose: 3 ml Azithromycin 500 mg/ Sodium (Chloride) 250 mls @ 250 mls/hr IV DAILY@2300 [facility] Stop: 02/18/18 22:59 Last Infusion: 12/21/17 23:32 Dose: Infused Ceftriaxone Sodium 1 gm/ (Sodium Chloride) 50 mls @ 100 mls/hr IV Q24HR [facility] Stop: 02/19/18 05:59 Last Admin: 12/22/17 07:04 Dose: 100 mls/hr Sodium Chloride (Nacl 0.9%) 1,000 mls @ 100 mls/hr IV .Q10H [facility] Stop: 02/19/18 13:14 Last Admin: 12/22/17 11:31 Dose: 100 mls/hr Insulin Aspart (Novolog Insulin Sliding Scale) 0 units SUBQ Q6HR [facility] PRN Reason: Protocol Stop: 02/19/18 07:36 Last Admin: 12/22/17 12:29 Dose: 4 units Lorazepam (Ativan) 0.5 mg IVP Q6HR PRN; Protocol PRN Reason: Anxiety Stop: 02/19/18 07:41 Last Admin: 12/22/17 07:05 Dose: 0.5 mg General: No acute distress HEENT: Atraumatic, Mucous membr. moist/pink Neck: Supple, +2 carotid pulse wo bruit Cardiovascular: Regular rate, Normal S1, Normal S2 Lungs: Clear to auscultation Abdomen: Bowel sounds, Soft Extremities: no Edema Neurological: Sensation intact Skin: no Rash Psych/Mental Status: Mood NL Assessment/Plan - Problem List Patient Problems: All Active Problems ELEVATED WBC WITH COUGH (Acute) - Assessment Assessment: BETTINA on CKD Met Enceph Sepsis 2/2 to Cx UTI CAD Anemia of CD Schizo T2DM Ess Htn - Plan Plan: Lab - Result Diagrams 12/22/17 05:10 12/22/17 05:10 Current Medications Acetaminophen (Tylenol 650mg/20.3ml Suspension) 650 mg PO Q4H PRN PRN Reason: Mild pain/Fever >=100F Stop: 02/19/18 04:28 Last Admin: 12/21/17 05:37 Dose: 650 mg Albuterol/Ipratropium (Duoneb Neb) 3 ml HHN [id number] [facility] Stop: 02/19/18 14:59 Last Admin: 12/22/17 14:32 Dose: 3 ml Azithromycin 500 mg/ Sodium (Chloride) 250 mls @ 250 mls/hr IV DAILY@2300 [facility] Stop: 02/18/18 22:59 Last Infusion: 12/21/17 23:32 Dose: Infused Ceftriaxone Sodium 1 gm/ (Sodium Chloride) 50 mls @ 100 mls/hr IV Q24HR [facility] Stop: 02/19/18 05:59 Last Admin: 12/22/17 07:04 Dose: 100 mls/hr Sodium Chloride (Nacl 0.9%) 1,000 mls @ 100 mls/hr IV .Q10H [facility] Stop: 02/19/18 13:14 Last Admin: 12/22/17 11:31 Dose: 100 mls/hr Insulin Aspart (Novolog Insulin Sliding Scale) 0 units SUBQ Q6HR [facility] PRN Reason: Protocol Stop: 02/19/18 07:36 Last Admin: 12/22/17 12:29 Dose: 4 units Lorazepam (Ativan) 0.5 mg IVP Q6HR PRN; Protocol PRN Reason: Anxiety Stop: 02/19/18 07:41 Last Admin: 12/22/17 07:05 Dose: 0.5 mg kidney fnc continues to improve UOP acceptable continue IVF f/u electrolytes, cbc Nutritional Asmnt/Malnutr-PDOC - Dietary Evaluation Malnutrition Findings (Please click <Entered> for more info): Nutritional Asmnt/Malnutrition Start: 12/21/17 15: 47 Text: Status: Active Freq: Document 12/21/17 15:47 KAYLAN (Rec: 12/21/17 16:07 [facility]AYLAN [email or web address]) Nutritional Asmnt/Malnutrition Patient General Information Nutritional Screening High Risk Diagnosis PNA, UTI Pertinent Medical Hx/Surgical Hx HTn, dyslipidemia, arthritis, dementia, PEG/Gtube Subjective Information Pt seen resting in bed at time of visit. TF running at 60ml/ hr. Current Diet Order/ Nutrition Support Diabetisource AC 60ml/hr x 20hr, providing 1440kcal and 72g protein Pertinent Medications novolog, Nacl 0.9% Pertinent Labs 12/20 Na 132, K 5.4, BUN 88, Cr 2.5, glucose 163, 12/21 POC 160-189 Nutritional Hx/Data Height 1.68 m Height (Calculated Centimeters) 167.6 Current Weight (lbs) 54.431 kg Weight (Calculated Kilograms) 54.4 Weight (Calculated Grams) 38321.1 [place] Body Weight 142 Body Mass Index (BMI) 19.3 Weight Status Approriate GI Symptoms GI Symptoms Diarrhea Last BM 12/21 x 3 Skin Integrity/Comment: ecchymosis at bilateral upper extremities Estimated Nutritional Goals BEE in Kcals: Using Current wt Calories/Kcals/Kg 25-30 Kcals Calculated 8623-2328 Protein: Using Current wt Protein g/k.1-1.3 Protein Calculated 60-72 Fluid: ml 1485-1760ml (1ml/kcal) Nutritional Problem 1. Problem Problem altered nutrition related labs Etiology electrolytes imbalance, renal dysfunction, hyperglycemia Signs/Symptoms: Na 132, K 5.4, BUN 88, Cr 2.5, glucose 163, POC 160-189 Malnutrition Alert Protein-Calorie Malnutrition N/A Is there a minimum of two criteria No selected? Query Text:Check all the applicable criteria. A minimum of two criteria are recommended for diagnosis of either severe or non-severe malnutrition. Intervention/Recommendation Comments 1. Considering decrease TF rate to 55ml/hr x 20hr, providing 1320kcal and 66g protein, if BUN/Cr, glucose continue high. 2. Monitor TF rate, tolerance, wt weekly, skin integrity and labs 3. F/U as high risk in 2-3 days, 12/23-12/24 Expected Outcomes/Goals Expected Outcomes/Goals 1. Pt to meet at least 75% of nutritional needs via nutrition support with tolerance 2. Wt stability, skin to remain intact, labs to approach WNL.
--- NOTE | 2017-12-22 20:49 | Cardiology ---
12/21/2017 ECHOCARDIOGRAM REPORT M-MODE ECHOCARDIOGRAM: Mitral valve, anterior leaflet of mitral valve shows normal excursion, EF velocity. Posterior leaflet of the mitral valve shows normal excursion. Left ventricle posterior showed normal thickness excursion. Interventricular septum showed normal thickness excursion. Ejection fraction 50%. Left atrium normal. Aortic root shows normal dimension, normal excursion of the leaflets. CONCLUSION: Minimal hypertrophy of the left ventricle, ejection fraction 50%. 2D ECHO: Long axis view showed normal sized left ventricle with hypertrophy of the left ventricle. Left atrium normal. Aortic root shows normal dimension, normal excursion of aortic leaflets. Short axis view of mitral valve normal. Short axis view of aortic valve normal. Apical four chamber view showed normal sized left ventricle with hypertrophy of the left ventricle. Left atrium is normal. Right ventricular cavity, right atrium normal, no pericardial effusion. CONCLUSION: Hypertrophy of the left ventricle, ejection fraction 50%. Doppler study shows normal antegrade flow across the mitral valve, tricuspid aortic valve, pulmonic valve. [facility]# [id number]
[2017-12-22 22:16] LABS: A1C % 6.4 % (4.0-6.0)
[2017-12-22] MEDS: Azithromycin 500 MG in Sodium Chloride 0.9% 250 ML IV SCH (23:13)
[2017-12-23] MEDS: INSULIN ASPART SLIDING SCALE 100 UNITS/ML UNIT SUBQ SCH ×4 (00:20→17:32)
--- NOTE | 2017-12-23 03:48 | Progress Notes ---
DATE: 12/22/2017 PULMONARY PROGRESS NOTE PROBLEM LIST: 1. Urosepsis. 2. Question acute on chronic pneumonia, underlying encephalopathic state. History of dysphagia as well as partial aphasia and also having the G-tube. SYMPTOMS: The patient is sleeping, arousable, no respiratory distress, etc. PHYSICAL EXAMINATION: VITAL SIGNS: T-max 97.5, blood pressure 126/60, saturation 100%. NECK: Veins not visualized. CHEST: Shows diminished air entry with occasional rhonchi. HEART: Regular. ABDOMEN: Soft, nontender. LABORATORY DATA: The patient's white count is 7.6, hemoglobin 9.7. PO2 is 63 and BUN and creatinine is improving, BUN is 47, creatinine 1.4. ASSESSMENT: The patient clinically appears to be stable, improving. PLANS AND SUGGESTIONS: We will go ahead and continue current treatment. We will follow through other studies in the next few days' time and go from there. JOB# [id number]
[2017-12-23] MEDS: cefTRIAXone 1 GM in Sodium Chloride 0.9% 50 ML IV SCH (05:13)
[2017-12-23 06:46] LABS: % BASOPHILS 1.1 % (0.0-2.0); % EOSINOPHILS 9.9 % (0.0-5.0); % LYMPHOCYTES 27.7 % (20.0-50.0); % MONOCYTES 11.1 % (2.0-10.0); % NEUTROPHILS 50.2 % (40.0-80.0); BASOPHILE ABSOLUTE 0.1 Th/cumm (0-0.2); EOSINOPHILE ABSOLUTE 0.6 Th/cmm (0.1-0.4); HEMATOCRIT 26.8 % (41.0-60); HEMOGLOBIN 9.1 gm/dL (12-16); LYMPHOCYTE ABSOLUTE 1.6 Th/cmm (1.5-3.0); MEAN CELL VOLUME 87.6 fl (80-99); MEAN CORPUSCULAR HEMOGLOBIN 29.6 pg (27.0-31.0); MEAN CORPUSCULAR HGB CONC 33.7 pg (28.0-36.0); MEAN PLATELET VOLUME 7.4 fl; MONOCYTE ABSOLUTE 0.6 Th/cmm (0.3-1.0); NEUTROPHILE ABSOLUTE 2.9 Th/cmm (1.8-8.0); PLATELET COUNT 290 Th/cmm (150-400); RED BLOOD COUNT 3.06 Mil/cmm (3.80-5.80); RED CELL DISTRIBUTION WIDTH 13.2 % (11.5-20.0); WHITE BLOOD COUNT 5.8 Th/cmm (4.8-10.8)
[2017-12-23] MEDS: Albuterol/Ipratropium Neb 3 ML AERS HHN SCH ×4 (07:11→19:23)
[2017-12-23 07:22] LABS: ANION GAP 9.1 (7.0-16.0); BUN - UREA NITROGEN 33 mg/dL (7-25); CALCIUM SERUM 8.5 mg/dL (8.6-10.3); CARBON DIOXIDE 24.8 mEq/L (21.0-31.0); CHLORIDE 112 mEq/L (98-107); CREATININE - SERUM 1.1 mg/dL (0.7-1.3); GLUCOSE 142 mg/dL (70-105); POTASSIUM SERUM 3.9 mEq/L (3.5-5.1); SODIUM SERUM 142 mEq/L (136-145)
[2017-12-23] MEDS: Sodium Chloride 0.9% 1,000 ML IV SCH ×2 (11:09→21:21)
--- NOTE | 2017-12-23 14:50 | Infectious Disease Prog Note ---
Infectious Disease Subjective - Review of Systems Service Date: 12/23/17 Subjective: No new change, no fever. Infectious Disease Objective - Results Result Diagrams: 12/23/17 06:17 12/23/17 06:17 Recent Labs: Laboratory Last Values WBC 5.8 Th/cmm (4.8-10.8) 12/23/17 06:17 RBC 3.06 Mil/cmm (3.80-5.80) L 12/23/17 06:17 Hgb 9.1 gm/dL (12-16) L 12/23/17 06:17 Hct 26.8 % (41.0-60) L 12/23/17 06:17 MCV 87.6 fl (80-99) 12/23/17 06:17 MCH 29.6 pg (27.0-31.0) 12/23/17 06:17 MCHC Differential 33.7 pg (28.0-36.0) 12/23/17 06:17 RDW 13.2 % (11.5-20.0) 12/23/17 06:17 Plt Count 290 Th/cmm (150-400) 12/23/17 06:17 MPV 7.4 fl 12/23/17 06:17 Neutrophils % 50.2 % (40.0-80.0) 12/23/17 06:17 Lymphocytes % 27.7 % (20.0-50.0) 12/23/17 06:17 Monocytes % 11.1 % (2.0-10.0) H 12/23/17 06:17 Eosinophils % 9.9 % (0.0-5.0) H 12/23/17 06:17 Basophils % 1.1 % (0.0-2.0) 12/23/17 06:17 Eos Smear Source URINE 12/21/17 13:30 Eos Smear Total Cells NONE SEEN (NONE SEEN) 12/21/17 13:30 PT 9.8 SECONDS (9.5-11.5) 12/20/17 18:10 INR 0.94 (0.5-1.4) 12/20/17 18:10 PTT (Actin FS) 26.9 SECONDS (26.0-38.0) 12/20/17 18:10 Specimen Source ARTERIAL 12/22/17 10:58 Sample Site Left Radial 12/22/17 10:58 pH 7.40 (7.35-7.45) 12/22/17 10:58 pCO2 37.0 mmHg (35.0-45.0) 12/22/17 10:58 pO2 63.0 mmHg (80.0-100.0) L 12/22/17 10:58 HCO3 25.0 mEq/L (20.0-26.0) 12/22/17 10:58 Base Excess 1.0 mEq/L (-3.0-3.0) 12/22/17 10:58 O2 Saturation 93.0 % (92.0-100.0) 12/22/17 10:58 Bradford Test P 12/22/17 10:58 Vent Rate N/A 12/22/17 10:58 Inspired O2 21 12/22/17 10:58 Tidal Volume N/A 12/22/17 10:58 PEEP N/A 12/22/17 10:58 Pressure (ins/psv/peep) N/A 12/22/17 10:58 Critical Value O.KAMARA 12/22/17 10:58 Sodium 142 mEq/L (136-145) 12/23/17 06:17 Potassium 3.9 mEq/L (3.5-5.1) 12/23/17 06:17 Chloride 112 mEq/L (98-107) H 12/23/17 06:17 Carbon Dioxide 24.8 mEq/L (21.0-31.0) 12/23/17 06:17 Anion Gap 9.1 (7.0-16.0) 12/23/17 06:17 BUN 33 mg/dL (7-25) H 12/23/17 06:17 Creatinine 1.1 mg/dL (0.7-1.3) 12/23/17 06:17 Est GFR ( Amer) TNP 12/23/17 06:17 Est GFR (Non-Af Amer) TNP 12/23/17 06:17 BUN/Creatinine Ratio 30.0 12/23/17 06:17 Glucose 142 mg/dL (70-105) H 12/23/17 06:17 POC Glucose 253 MG/DL (70 - 105) H 12/23/17 11:44 Hemoglobin A1c % 6.4 % (4.0-6.0) H 12/22/17 05:10 Whole Bld Lactic Acid 1.22 mmol/L (0.60-1.99) 12/20/17 18:10 Uric Acid 7.7 mg/dL (4.4-7.6) H 12/22/17 05:10 Calcium 8.5 mg/dL (8.6-10.3) L 12/23/17 06:17 Phosphorus 3.0 mg/dL (2.5-5.0) 12/22/17 05:10 Magnesium 2.3 mg/dL (1.9-2.7) 12/22/17 05:10 Total Bilirubin 0.4 mg/dL (0.3-1.0) 12/20/17 18:10 AST 30 U/L (13-39) 12/20/17 18:10 ALT 60 U/L (7-52) H 12/20/17 18:10 Alkaline Phosphatase 115 U/L (34-104) H 12/20/17 18:10 Creatine Kinase 44 U/L (30-223) 12/20/17 18:10 Troponin I 0.01 ng/mL (0.01-0.05) 12/20/17 18:10 B-Natriuretic Peptide 18.4 pg/mL (5.0-100.0) 12/22/17 05:10 Total Protein 7.6 gm/dL (6.0-8.3) 12/20/17 18:10 Albumin 3.8 gm/dL (4.2-5.5) L 12/20/17 18:10 Globulin 3.8 gm/dL 12/20/17 18:10 Albumin/Globulin Ratio 1.0 (1.0-1.8) 12/20/17 18:10 TSH 0.43 uIU/ml (0.34-5.60) 12/22/17 05:10 Urine Source MIDSTREAM 12/20/17 18:35 Urine Color YELLOW 12/20/17 18:35 Urine Clarity CLOUDY (CLEAR) 12/20/17 18:35 Urine pH 5.5 (4.6 - 8.0) 12/20/17 18:35 Ur Specific [place] 1.025 (1.005-1.030) 12/20/17 18:35 Urine Protein 100 mg/dL (NEGATIVE) H 12/20/17 18:35 Urine Glucose (UA) NEGATIVE mg/dL (NEGATIVE) 12/20/17 18:35 Urine Ketones TRACE mg/dL (NEGATIVE) 12/20/17 18:35 Urine Blood MODERATE (NEGATIVE) H 12/20/17 18:35 Urine Nitrate NEGATIVE (NEGATIVE) 12/20/17 18:35 Urine Bilirubin NEGATIVE (NEGATIVE) 12/20/17 18:35 Urine Urobilinogen 0.2 E.U./dL (0.2 - 1.0) 12/20/17 18:35 Ur Leukocyte Esterase MODERATE (NEGATIVE) H 12/20/17 18:35 Urine RBC 5-10 /hpf (0-5) H 12/20/17 18:35 Urine WBC >100 /hpf (0-5) H 12/20/17 18:35 Ur Epithelial Cells NONE SEEN /lpf (FEW) 12/20/17 18:35 Urine Bacteria MODERATE /hpf (NONE SEEN) H 12/20/17 18:35 Ur Random Sodium 66 mmol/L 12/21/17 13:30 Urine Creatinine 63.6 mg/dl 12/21/17 13:30 Urine Microalbumin 58.8 12/21/17 13:30 Microalb/Creat Ratio 92.5 12/21/17 13:30 - Physical Exam Vitals and I&O: Vital Signs Temp 97.5 F 12/23/17 12:00 Pulse 107 12/23/17 14:38 Resp 18 12/23/17 14:38 BP 104/51 12/23/17 12:00 Pulse Ox 99 12/23/17 14:38 Intake & Output 12/22/17 12/23/17 12/23/17 18:59 06:59 18:59 Intake Total 50 1300 1000 Balance 50 1300 1000 Weight (lbs) 58.513 kg 59.693 kg Intake: Intake, IV Amount 50 1300 1000 Azithromycin 500 mg In 250 Sodium Chloride 0.9% 250 ml @ 250 mls/hr IV DAILY@ 2300 [facility] Rx#:[id number] Sodium Chloride 0.9% 1, 1000 1000 000 ml @ 100 mls/hr IV . Q10H [facility] Rx#:[id number] cefTRIAXone 1 gm In 50 50 Sodium Chloride 0.9% 50 ml @ 100 mls/hr IV Q24HR [facility] Rx#:[id number] Other: Stool Characteristics Soft Soft Formed Formed Brown Green Weight Source Bedscale Bedscale Active Medications: Current Medications Acetaminophen (Tylenol 650mg/20.3ml Suspension) 650 mg PO Q4H PRN PRN Reason: Mild pain/Fever >=100F Stop: 02/19/18 04:28 Last Admin: 12/23/17 10:07 Dose: 650 mg Albuterol/Ipratropium (Duoneb Neb) 3 ml HHN [id number] [facility] Stop: 02/19/18 14:59 Last Admin: 12/23/17 14:38 Dose: 3 ml Azithromycin 500 mg/ Sodium (Chloride) 250 mls @ 250 mls/hr IV DAILY@2300 [facility] Stop: 02/18/18 22:59 Last Infusion: 12/23/17 00:13 Dose: Infused Ceftriaxone Sodium 1 gm/ (Sodium Chloride) 50 mls @ 100 mls/hr IV Q24HR [facility] Stop: 02/19/18 05:59 Last Infusion: 12/23/17 05:43 Dose: Infused Sodium Chloride (Nacl 0.9%) 1,000 mls @ 100 mls/hr IV .Q10H [facility] Stop: 02/19/18 13:14 Last Admin: 12/23/17 11:09 Dose: 100 mls/hr Insulin Aspart (Novolog Insulin Sliding Scale) 0 units SUBQ Q6HR [facility] PRN Reason: Protocol Stop: 02/19/18 07:36 Last Admin: 12/23/17 11:52 Dose: 6 units Lorazepam (Ativan) 0.5 mg IVP Q6HR PRN; Protocol PRN Reason: Anxiety Stop: 02/19/18 07:41 Last Admin: 12/23/17 11:10 Dose: 0.5 mg General: no acute distress, well developed, well nourished HEENT: atraumatic, normocephalic, PERRLA Neck: supple, no thyromegaly Cardiovascular: S1S2, regular Lungs: clear to auscultation bilaterally, clear to percussion Abdomen: soft, no tender, no distended, no mass Extremities: no cyanosis, no clubbing, no edema Neurological: awake, alert, oriented Skin: intact Infectious Disease Assmt/Plan - Problem List Patient Problems: All Active Problems ELEVATED WBC WITH COUGH (Acute) - Assessment Assessment: Current Active Problems Problem Status Onset ELEVATED WBC WITH COUGH Acute 1. Left lower lobe pneumonia. 2. UTI. 3. Leukocytosis. improved. 4. Elevated BUN/creatinine, AK I resolving. 5. Hyperlipidemia 6. Dementia. 7. Chronic lung changes. 8. Hypertension. 9. Diabetes mellitus type 2 10. C diff toxin positive, but there is no diarrhea. likely carrier stage. - Plan Plan: Conitnue Rocephin and Zithromax. It can be changed to levaquin po for 7 days. Continue same medication. DVT prophylaxis. DC planning. Nutritional Asmnt/Malnutr-PDOC - Dietary Evaluation Malnutrition Findings (Please click <Entered> for more info): Nutritional Asmnt/Malnutrition Start: 12/21/17 15: 47 Text: Status: Active Freq: Document 12/21/17 15:47 KAYLAN (Rec: 12/21/17 16:07 KAYLAN VANITA-FN) Nutritional Asmnt/Malnutrition Patient General Information Nutritional Screening High Risk Diagnosis PNA, UTI Pertinent Medical Hx/Surgical Hx HTn, dyslipidemia, arthritis, dementia, PEG/Gtube Subjective Information Pt seen resting in bed at time of visit. TF running at 60ml/ hr. Current Diet Order/ Nutrition Support Diabetisource AC 60ml/hr x 20hr, providing 1440kcal and 72g protein Pertinent Medications novolog, Nacl 0.9% Pertinent Labs 5/2 Na 132, K 5.4, BUN 88, Cr 2.5, glucose 163, 5/3 POC 160-189 Nutritional Hx/Data Height 1.68 m Height (Calculated Centimeters) 167.6 Current Weight (lbs) 54.431 kg Weight (Calculated Kilograms) 54.4 Weight (Calculated Grams) 82914.1 [place] Body Weight 142 Body Mass Index (BMI) 19.3 Weight Status Approriate GI Symptoms GI Symptoms Diarrhea Last BM 5/3 x 3 Skin Integrity/Comment: ecchymosis at bilateral upper extremities Estimated Nutritional Goals BEE in Kcals: Using Current wt Calories/Kcals/Kg 25-30 Kcals Calculated 4350-0992 Protein: Using Current wt Protein g/k.1-1.3 Protein Calculated 60-72 Fluid: ml 1485-1760ml (1ml/kcal) Nutritional Problem 1. Problem Problem altered nutrition related labs Etiology electrolytes imbalance, renal dysfunction, hyperglycemia Signs/Symptoms: Na 132, K 5.4, BUN 88, Cr 2.5, glucose 163, POC 160-189 Malnutrition Alert Protein-Calorie Malnutrition N/A Is there a minimum of two criteria No selected? Query Text:Check all the applicable criteria. A minimum of two criteria are recommended for diagnosis of either severe or non-severe malnutrition. Intervention/Recommendation Comments 1. Considering decrease TF rate to 55ml/hr x 20hr, providing 1320kcal and 66g protein, if BUN/Cr, glucose continue high. 2. Monitor TF rate, tolerance, wt weekly, skin integrity and labs 3. F/U as high risk in 2-3 days, 12/23-12/24 Expected Outcomes/Goals Expected Outcomes/Goals 1. Pt to meet at least 75% of nutritional needs via nutrition support with tolerance 2. Wt stability, skin to remain intact, labs to approach WNL.
[2017-12-24] MEDS: INSULIN ASPART SLIDING SCALE 100 UNITS/ML UNIT SUBQ SCH ×4 (00:18→20:12)
--- NOTE | 2017-12-24 00:22 | Progress Notes ---
DATE: 12/21/2017 PULMONARY PROGRESS NOTE PROBLEM LIST: 1. Pneumonia. 2. Acute asthmatic bronchitis. 3. Urosepsis. SYMPTOMS: Nil. The patient totally confused, disoriented and meaningful communication from the patient could not be done. PHYSICAL EXAMINATION: GENERAL: Not in any acute distress. VITAL SIGNS: The patient's recorded vitals: Temperature is 97.9, blood pressure 120/54, saturation in mid 90s. ENT: Shows no new changes. CHEST: Shows clear with occasional rhonchi. HEART: Regular. ABDOMEN: Soft, nontender with a G-tube. LABORATORY DATA: Chest x-ray shows very minimal residual infiltrate on the left base. ASSESSMENT: The patient is clinically stable, improving respiratory chamberlain with dysphagia partial aphasia, urosepsis. PLANS AND SUGGESTIONS: We will continue current treatment, IV antibiotic per ID and go from there. JOB# [id number]
[2017-12-24 06:41] LABS: % BASOPHILS 0.8 % (0.0-2.0); % EOSINOPHILS 10.3 % (0.0-5.0); % LYMPHOCYTES 25.7 % (20.0-50.0); % MONOCYTES 11.7 % (2.0-10.0); % NEUTROPHILS 51.5 % (40.0-80.0); BASOPHILE ABSOLUTE 0.1 Th/cumm (0-0.2); EOSINOPHILE ABSOLUTE 0.7 Th/cmm (0.1-0.4); HEMOGLOBIN 8.9 gm/dL (12-16); LYMPHOCYTE ABSOLUTE 1.6 Th/cmm (1.5-3.0); MEAN CELL VOLUME 87.1 fl (80-99); MEAN CORPUSCULAR HEMOGLOBIN 29.9 pg (27.0-31.0); MEAN CORPUSCULAR HGB CONC 34.3 pg (28.0-36.0); MEAN PLATELET VOLUME 7.5 fl; MONOCYTE ABSOLUTE 0.7 Th/cmm (0.3-1.0); NEUTROPHILE ABSOLUTE 3.3 Th/cmm (1.8-8.0); PLATELET COUNT 264 Th/cmm (150-400); RED BLOOD COUNT 2.98 Mil/cmm (3.80-5.80); RED CELL DISTRIBUTION WIDTH 12.9 % (11.5-20.0); WHITE BLOOD COUNT 6.4 Th/cmm (4.8-10.8)
[2017-12-24] MEDS: Albuterol/Ipratropium Neb 3 ML AERS HHN SCH ×4 (07:03→19:56)
[2017-12-24 07:13] LABS: ALBUMIN 2.9 gm/dL (4.2-5.5); ALKALINE PHOSPHATASE 107 U/L (34-104); ANION GAP 8.9 (7.0-16.0); BILIRUBIN,TOTAL 0.2 mg/dL (0.3-1.0); BUN - UREA NITROGEN 25 mg/dL (7-25); CALCIUM SERUM 8.5 mg/dL (8.6-10.3); CARBON DIOXIDE 24.4 mEq/L (21.0-31.0); CHLORIDE 110 mEq/L (98-107); CREATININE - SERUM 1.1 mg/dL (0.7-1.3); GLUCOSE 144 mg/dL (70-105); MAGNESIUM 1.7 mg/dL (1.9-2.7); PHOSPHOROUS 1.7 mg/dL (2.5-5.0); POTASSIUM SERUM 4.3 mEq/L (3.5-5.1); SGOT 40 U/L (13-39); SGPT/ALT 53 U/L (7-52); SODIUM SERUM 139 mEq/L (136-145); TOTAL PROTEIN,SERUM 5.7 gm/dL (6.0-8.3)
[2017-12-24] MEDS: Sodium Chloride 0.9% 1,000 ML IV SCH ×2 (10:12→13:44)
--- NOTE | 2017-12-24 16:09 | Infectious Disease Prog Note ---
Infectious Disease Subjective - Review of Systems Service Date: 12/24/17 Subjective: No new change, no fever. No diarrhea. Infectious Disease Objective - Results Result Diagrams: 12/24/17 06:16 12/24/17 06:16 Recent Labs: Laboratory Last Values WBC 6.4 Th/cmm (4.8-10.8) 12/24/17 06:16 RBC 2.98 Mil/cmm (3.80-5.80) L 12/24/17 06:16 Hgb 8.9 gm/dL (12-16) L 12/24/17 06:16 Hct 26.0 % (41.0-60) L 12/24/17 06:16 MCV 87.1 fl (80-99) 12/24/17 06:16 MCH 29.9 pg (27.0-31.0) 12/24/17 06:16 MCHC Differential 34.3 pg (28.0-36.0) 12/24/17 06:16 RDW 12.9 % (11.5-20.0) 12/24/17 06:16 Plt Count 264 Th/cmm (150-400) 12/24/17 06:16 MPV 7.5 fl 12/24/17 06:16 Neutrophils % 51.5 % (40.0-80.0) 12/24/17 06:16 Lymphocytes % 25.7 % (20.0-50.0) 12/24/17 06:16 Monocytes % 11.7 % (2.0-10.0) H 12/24/17 06:16 Eosinophils % 10.3 % (0.0-5.0) H 12/24/17 06:16 Basophils % 0.8 % (0.0-2.0) 12/24/17 06:16 Eos Smear Source URINE 12/21/17 13:30 Eos Smear Total Cells NONE SEEN (NONE SEEN) 12/21/17 13:30 PT 9.8 SECONDS (9.5-11.5) 12/20/17 18:10 INR 0.94 (0.5-1.4) 12/20/17 18:10 PTT (Actin FS) 26.9 SECONDS (26.0-38.0) 12/20/17 18:10 Specimen Source ARTERIAL 12/22/17 10:58 Sample Site Left Radial 12/22/17 10:58 pH 7.40 (7.35-7.45) 12/22/17 10:58 pCO2 37.0 mmHg (35.0-45.0) 12/22/17 10:58 pO2 63.0 mmHg (80.0-100.0) L 12/22/17 10:58 HCO3 25.0 mEq/L (20.0-26.0) 12/22/17 10:58 Base Excess 1.0 mEq/L (-3.0-3.0) 12/22/17 10:58 O2 Saturation 93.0 % (92.0-100.0) 12/22/17 10:58 Bradford Test P 12/22/17 10:58 Vent Rate N/A 12/22/17 10:58 Inspired O2 21 12/22/17 10:58 Tidal Volume N/A 12/22/17 10:58 PEEP N/A 12/22/17 10:58 Pressure (ins/psv/peep) N/A 12/22/17 10:58 Critical Value O.KAMARA 12/22/17 10:58 Sodium 139 mEq/L (136-145) 12/24/17 06:16 Potassium 4.3 mEq/L (3.5-5.1) 12/24/17 06:16 Chloride 110 mEq/L (98-107) H 12/24/17 06:16 Carbon Dioxide 24.4 mEq/L (21.0-31.0) 12/24/17 06:16 Anion Gap 8.9 (7.0-16.0) 12/24/17 06:16 BUN 25 mg/dL (7-25) 12/24/17 06:16 Creatinine 1.1 mg/dL (0.7-1.3) 12/24/17 06:16 Est GFR ( Amer) TNP 12/24/17 06:16 Est GFR (Non-Af Amer) TNP 12/24/17 06:16 BUN/Creatinine Ratio 22.7 12/24/17 06:16 Glucose 144 mg/dL (70-105) H 12/24/17 06:16 POC Glucose 134 MG/DL (70 - 105) H 12/24/17 14:01 Hemoglobin A1c % 6.4 % (4.0-6.0) H 12/22/17 05:10 Plasma/Ser Osmolality 307 mOsmol/kg (280-301) H 12/21/17 14:40 Whole Bld Lactic Acid 1.22 mmol/L (0.60-1.99) 12/20/17 18:10 Uric Acid 7.7 mg/dL (4.4-7.6) H 12/22/17 05:10 Calcium 8.5 mg/dL (8.6-10.3) L 12/24/17 06:16 Phosphorus 1.7 mg/dL (2.5-5.0) L 12/24/17 06:16 Magnesium 1.7 mg/dL (1.9-2.7) L 12/24/17 06:16 Total Bilirubin 0.2 mg/dL (0.3-1.0) L 12/24/17 06:16 AST 40 U/L (13-39) H 12/24/17 06:16 ALT 53 U/L (7-52) H 12/24/17 06:16 Alkaline Phosphatase 107 U/L (34-104) H 12/24/17 06:16 Creatine Kinase 44 U/L (30-223) 12/20/17 18:10 Troponin I 0.01 ng/mL (0.01-0.05) 12/20/17 18:10 B-Natriuretic Peptide 18.4 pg/mL (5.0-100.0) 12/22/17 05:10 Total Protein 5.7 gm/dL (6.0-8.3) L 12/24/17 06:16 Albumin 2.9 gm/dL (4.2-5.5) L 12/24/17 06:16 Globulin 2.8 gm/dL 12/24/17 06:16 Albumin/Globulin Ratio 1.0 (1.0-1.8) 12/24/17 06:16 TSH 0.43 uIU/ml (0.34-5.60) 12/22/17 05:10 Urine Source MIDSTREAM 12/20/17 18:35 Urine Color YELLOW 12/20/17 18:35 Urine Clarity CLOUDY (CLEAR) 12/20/17 18:35 Urine pH 5.5 (4.6 - 8.0) 12/20/17 18:35 Ur Specific [place] 1.025 (1.005-1.030) 12/20/17 18:35 Urine Protein 100 mg/dL (NEGATIVE) H 12/20/17 18:35 Urine Glucose (UA) NEGATIVE mg/dL (NEGATIVE) 12/20/17 18:35 Urine Ketones TRACE mg/dL (NEGATIVE) 12/20/17 18:35 Urine Blood MODERATE (NEGATIVE) H 12/20/17 18:35 Urine Nitrate NEGATIVE (NEGATIVE) 12/20/17 18:35 Urine Bilirubin NEGATIVE (NEGATIVE) 12/20/17 18:35 Urine Urobilinogen 0.2 E.U./dL (0.2 - 1.0) 12/20/17 18:35 Ur Leukocyte Esterase MODERATE (NEGATIVE) H 12/20/17 18:35 Urine RBC 5-10 /hpf (0-5) H 12/20/17 18:35 Urine WBC >100 /hpf (0-5) H 12/20/17 18:35 Ur Epithelial Cells NONE SEEN /lpf (FEW) 12/20/17 18:35 Urine Bacteria MODERATE /hpf (NONE SEEN) H 12/20/17 18:35 Ur Random Sodium 66 mmol/L 12/21/17 13:30 Urine Creatinine 63.6 mg/dl 12/21/17 13:30 Urine Microalbumin 58.8 12/21/17 13:30 Microalb/Creat Ratio 92.5 12/21/17 13:30 - Physical Exam Vitals and I&O: Vital Signs Temp 98.9 F 12/24/17 12:00 Pulse 94 12/24/17 14:44 Resp 18 12/24/17 14:44 BP 128/65 12/24/17 12:00 Pulse Ox 98 12/24/17 14:44 Intake & Output 12/23/17 12/24/17 12/24/17 18:59 06:59 18:59 Intake Total 1000 1300 1353.333 Output Total 800 1000 Balance 539 524 9217.333 Weight (lbs) 59.421 kg 60.328 kg 60.328 kg Intake: Intake, IV Amount 1000 1000 1353.333 Sodium Chloride 0.9% 1, 1000 1000 1353.333 000 ml @ 100 mls/hr IV . Q10H [facility] Rx#:[id number] Other 300 Output: Urine 800 1000 Other: # Voids 2 # Bowel Movements 1 Weight Source Bedscale Bedscale Estimated Active Medications: Current Medications Acetaminophen (Tylenol 650mg/20.3ml Suspension) 650 mg PO Q4H PRN PRN Reason: Mild pain/Fever >=100F Stop: 02/19/18 04:28 Last Admin: 12/23/17 10:07 Dose: 650 mg Albuterol/Ipratropium (Duoneb Neb) 3 ml HHN [id number] [facility] Stop: 02/19/18 14:59 Last Admin: 12/24/17 14:39 Dose: 3 ml Sodium Chloride (Nacl 0.9%) 1,000 mls @ 100 mls/hr IV .Q10H [facility] Stop: 02/19/18 13:14 Last Admin: 12/24/17 13:44 Dose: 100 mls/hr Insulin Aspart (Novolog Insulin Sliding Scale) 0 units SUBQ Q6HR [facility] PRN Reason: Protocol Stop: 02/19/18 07:36 Last Admin: 12/24/17 14:04 Dose: Not Given Levofloxacin (Levaquin) 500 mg PO DAILY [facility] Stop: 02/22/18 08:59 Last Admin: 12/24/17 10:11 Dose: 500 mg Lorazepam (Ativan) 0.5 mg IVP Q6HR PRN; Protocol PRN Reason: Anxiety Stop: 02/19/18 07:41 Last Admin: 12/24/17 10:43 Dose: 0.5 mg General: no acute distress, well developed, well nourished HEENT: atraumatic, normocephalic, PERRLA, EOMI Neck: supple, no thyromegaly Cardiovascular: S1S2, regular Lungs: clear to auscultation bilaterally, clear to percussion Abdomen: soft, no tender, no distended, no mass, no rebound, no hepatomegaly Extremities: no cyanosis, no clubbing, no edema Neurological: awake, alert, oriented Skin: intact Infectious Disease Assmt/Plan - Problem List Patient Problems: All Active Problems ELEVATED WBC WITH COUGH (Acute) - Assessment Assessment: Current Active Problems Problem Status Onset ELEVATED WBC WITH COUGH Acute 1. Left lower lobe pneumonia. 2. UTI. 3. Leukocytosis. improved. 4. Elevated BUN/creatinine, AK I resolving. 5. Hyperlipidemia 6. Dementia. 7. Chronic lung changes. 8. Hypertension. 9. Diabetes mellitus type 2 10. C diff toxin positive, but there is no diarrhea. likely carrier stage. - Plan Plan: Conitnue levaquin po for 6 days. Continue same medication. DVT prophylaxis. DC planning. Nutritional Asmnt/Malnutr-PDOC - Dietary Evaluation Malnutrition Findings (Please click <Entered> for more info): Nutritional Asmnt/Malnutrition Start: 12/21/17 15: 47 Text: Status: Active Freq: Document 12/21/17 15:47 SARITHA (Rec: 12/21/17 16:07 [email or web address] Nutritional Asmnt/Malnutrition Patient General Information Nutritional Screening High Risk Diagnosis PNA, UTI Pertinent Medical Hx/Surgical Hx HTn, dyslipidemia, arthritis, dementia, PEG/Gtube Subjective Information Pt seen resting in bed at time of visit. TF running at 60ml/ hr. Current Diet Order/ Nutrition Support Diabetisource AC 60ml/hr x 20hr, providing 1440kcal and 72g protein Pertinent Medications novolog, Nacl 0.9% Pertinent Labs 5/ Na 132, K 5.4, BUN 88, Cr 2.5, glucose 163, 5/3 POC 160-189 Nutritional Hx/Data Height 1.68 m Height (Calculated Centimeters) 167.6 Current Weight (lbs) 54.431 kg Weight (Calculated Kilograms) 54.4 Weight (Calculated Grams) 37676.1 [place] Body Weight 142 Body Mass Index (BMI) 19.3 Weight Status Approriate GI Symptoms GI Symptoms Diarrhea Last BM 5/3 x 3 Skin Integrity/Comment: ecchymosis at bilateral upper extremities Estimated Nutritional Goals BEE in Kcals: Using Current wt Calories/Kcals/Kg 25-30 Kcals Calculated 3024-2549 Protein: Using Current wt Protein g/k.1-1.3 Protein Calculated 60-72 Fluid: ml 1485-1760ml (1ml/kcal) Nutritional Problem 1. Problem Problem altered nutrition related labs Etiology electrolytes imbalance, renal dysfunction, hyperglycemia Signs/Symptoms: Na 132, K 5.4, BUN 88, Cr 2.5, glucose 163, POC 160-189 Malnutrition Alert Protein-Calorie Malnutrition N/A Is there a minimum of two criteria No selected? Query Text:Check all the applicable criteria. A minimum of two criteria are recommended for diagnosis of either severe or non-severe malnutrition. Intervention/Recommendation Comments 1. Considering decrease TF rate to 55ml/hr x 20hr, providing 1320kcal and 66g protein, if BUN/Cr, glucose continue high. 2. Monitor TF rate, tolerance, wt weekly, skin integrity and labs 3. F/U as high risk in 2-3 days, 12/23-12/24 Expected Outcomes/Goals Expected Outcomes/Goals 1. Pt to meet at least 75% of nutritional needs via nutrition support with tolerance 2. Wt stability, skin to remain intact, labs to approach WNL.
[2017-12-24] MEDS ORDERED: Mag Sulfate 2gm/50mL Premix 2 GM/50 ML BAG IV ONE (17:59)
[2017-12-24] MEDS ORDERED: Sodium Phos / Potassium Phos 1.25 GM PACK PO SCH (18:00)
[2017-12-25] MEDS: INSULIN ASPART SLIDING SCALE 100 UNITS/ML UNIT SUBQ SCH ×3 (00:38→12:49)
--- NOTE | 2017-12-25 00:56 | Progress Notes ---
DATE: 12/24/2017 PULMONARY PROGRESS NOTE PROBLEM LIST: 1. Acute tracheobronchitis on chronic. 2. Dysphagia. 3. 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 SYMPTOMS: The patient is mumbling, no meaningful communication could be done. Does not seem to be in any acute distress. PHYSICAL EXAMINATION: VITAL SIGNS: T-max 98.7, blood pressure is 128/65, saturation is mid 90s on room air. NECK: Veins not visualized. CHEST: Shows diminished air entry with occasional rhonchi. HEART: Regular. ABDOMEN: Soft, nontender. LABORATORY DATA: White count is 6.4, hemoglobin 8.9. Electrolytes are okay. Magnesium is 1.7. ASSESSMENT: The patient clinically respiratory chamberlain stable, improving. PLANS AND SUGGESTIONS: We will go ahead and continue current treatment for follow through lab, etc. in few days and go from there. JOB# [id number]
[2017-12-25 05:42] LABS: % BASOPHILS 1.2 % (0.0-2.0); % EOSINOPHILS 7.6 % (0.0-5.0); % MONOCYTES 11.8 % (2.0-10.0); % NEUTROPHILS 53.4 % (40.0-80.0); BASOPHILE ABSOLUTE 0.1 Th/cumm (0-0.2); EOSINOPHILE ABSOLUTE 0.5 Th/cmm (0.1-0.4); HEMATOCRIT 27.8 % (41.0-60); HEMOGLOBIN 9.7 gm/dL (12-16); LYMPHOCYTE ABSOLUTE 1.7 Th/cmm (1.5-3.0); MEAN CELL VOLUME 87.2 fl (80-99); MEAN CORPUSCULAR HEMOGLOBIN 30.4 pg (27.0-31.0); MEAN CORPUSCULAR HGB CONC 34.8 pg (28.0-36.0); MEAN PLATELET VOLUME 7.5 fl; MONOCYTE ABSOLUTE 0.8 Th/cmm (0.3-1.0); NEUTROPHILE ABSOLUTE 3.3 Th/cmm (1.8-8.0); PLATELET COUNT 284 Th/cmm (150-400); RED BLOOD COUNT 3.19 Mil/cmm (3.80-5.80); RED CELL DISTRIBUTION WIDTH 12.7 % (11.5-20.0); WHITE BLOOD COUNT 6.4 Th/cmm (4.8-10.8)
[2017-12-25 05:56] LABS: BUN - UREA NITROGEN 21 mg/dL (7-25); CALCIUM SERUM 8.9 mg/dL (8.6-10.3); CARBON DIOXIDE 24.4 mEq/L (21.0-31.0); CHLORIDE 106 mEq/L (98-107); CREATININE - SERUM 1.1 mg/dL (0.7-1.3); GLUCOSE 158 mg/dL (70-105); MAGNESIUM 2.1 mg/dL (1.9-2.7); PHOSPHOROUS 2.4 mg/dL (2.5-5.0); POTASSIUM SERUM 4.4 mEq/L (3.5-5.1); SODIUM SERUM 136 mEq/L (136-145)
[2017-12-25] MEDS: Albuterol/Ipratropium Neb 3 ML AERS HHN SCH ×2 (07:10→10:20)
--- NOTE | 2017-12-25 13:46 | Infectious Disease Prog Note ---
Infectious Disease Subjective - Review of Systems Service Date: 12/25/17 Subjective: No new change, no fever. No diarrhea. Infectious Disease Objective - Results Result Diagrams: 12/25/17 05:00 12/25/17 05:00 Recent Labs: Laboratory Last Values WBC 6.4 Th/cmm (4.8-10.8) 12/25/17 05:00 RBC 3.19 Mil/cmm (3.80-5.80) L 12/25/17 05:00 Hgb 9.7 gm/dL (12-16) L 12/25/17 05:00 Hct 27.8 % (41.0-60) L 12/25/17 05:00 MCV 87.2 fl (80-99) 12/25/17 05:00 MCH 30.4 pg (27.0-31.0) 12/25/17 05:00 MCHC Differential 34.8 pg (28.0-36.0) 12/25/17 05:00 RDW 12.7 % (11.5-20.0) 12/25/17 05:00 Plt Count 284 Th/cmm (150-400) 12/25/17 05:00 MPV 7.5 fl 12/25/17 05:00 Neutrophils % 53.4 % (40.0-80.0) 12/25/17 05:00 Lymphocytes % 26.0 % (20.0-50.0) 12/25/17 05:00 Monocytes % 11.8 % (2.0-10.0) H 12/25/17 05:00 Eosinophils % 7.6 % (0.0-5.0) H 12/25/17 05:00 Basophils % 1.2 % (0.0-2.0) 12/25/17 05:00 Eos Smear Source URINE 12/21/17 13:30 Eos Smear Total Cells NONE SEEN (NONE SEEN) 12/21/17 13:30 PT 9.8 SECONDS (9.5-11.5) 12/20/17 18:10 INR 0.94 (0.5-1.4) 12/20/17 18:10 PTT (Actin FS) 26.9 SECONDS (26.0-38.0) 12/20/17 18:10 Specimen Source ARTERIAL 12/22/17 10:58 Sample Site Left Radial 12/22/17 10:58 pH 7.40 (7.35-7.45) 12/22/17 10:58 pCO2 37.0 mmHg (35.0-45.0) 12/22/17 10:58 pO2 63.0 mmHg (80.0-100.0) L 12/22/17 10:58 HCO3 25.0 mEq/L (20.0-26.0) 12/22/17 10:58 Base Excess 1.0 mEq/L (-3.0-3.0) 12/22/17 10:58 O2 Saturation 93.0 % (92.0-100.0) 12/22/17 10:58 Bradford Test P 12/22/17 10:58 Vent Rate N/A 12/22/17 10:58 Inspired O2 21 12/22/17 10:58 Tidal Volume N/A 12/22/17 10:58 PEEP N/A 12/22/17 10:58 Pressure (ins/psv/peep) N/A 12/22/17 10:58 Critical Value O.KAMARA 12/22/17 10:58 Sodium 136 mEq/L (136-145) 12/25/17 05:00 Potassium 4.4 mEq/L (3.5-5.1) 12/25/17 05:00 Chloride 106 mEq/L (98-107) 12/25/17 05:00 Carbon Dioxide 24.4 mEq/L (21.0-31.0) 12/25/17 05:00 Anion Gap 10.0 (7.0-16.0) 12/25/17 05:00 BUN 21 mg/dL (7-25) 12/25/17 05:00 Creatinine 1.1 mg/dL (0.7-1.3) 12/25/17 05:00 Est GFR ( Amer) TNP 12/25/17 05:00 Est GFR (Non-Af Amer) TNP 12/25/17 05:00 BUN/Creatinine Ratio 19.1 12/25/17 05:00 Glucose 158 mg/dL (70-105) H 12/25/17 05:00 POC Glucose 144 MG/DL (70 - 105) H 12/25/17 12:44 Hemoglobin A1c % 6.4 % (4.0-6.0) H 12/22/17 05:10 Plasma/Ser Osmolality 307 mOsmol/kg (280-301) H 12/21/17 14:40 Whole Bld Lactic Acid 1.22 mmol/L (0.60-1.99) 12/20/17 18:10 Uric Acid 7.7 mg/dL (4.4-7.6) H 12/22/17 05:10 Calcium 8.9 mg/dL (8.6-10.3) 12/25/17 05:00 Phosphorus 2.4 mg/dL (2.5-5.0) L 12/25/17 05:00 Magnesium 2.1 mg/dL (1.9-2.7) 12/25/17 05:00 Total Bilirubin 0.2 mg/dL (0.3-1.0) L 12/24/17 06:16 AST 40 U/L (13-39) H 12/24/17 06:16 ALT 53 U/L (7-52) H 12/24/17 06:16 Alkaline Phosphatase 107 U/L (34-104) H 12/24/17 06:16 Creatine Kinase 44 U/L (30-223) 12/20/17 18:10 Troponin I 0.01 ng/mL (0.01-0.05) 12/20/17 18:10 B-Natriuretic Peptide 18.4 pg/mL (5.0-100.0) 12/22/17 05:10 Total Protein 5.7 gm/dL (6.0-8.3) L 12/24/17 06:16 Albumin 2.9 gm/dL (4.2-5.5) L 12/24/17 06:16 Globulin 2.8 gm/dL 12/24/17 06:16 Albumin/Globulin Ratio 1.0 (1.0-1.8) 12/24/17 06:16 TSH 0.43 uIU/ml (0.34-5.60) 12/22/17 05:10 Urine Source MIDSTREAM 12/20/17 18:35 Urine Color YELLOW 12/20/17 18:35 Urine Clarity CLOUDY (CLEAR) 12/20/17 18:35 Urine pH 5.5 (4.6 - 8.0) 12/20/17 18:35 Ur Specific [place] 1.025 (1.005-1.030) 12/20/17 18:35 Urine Protein 100 mg/dL (NEGATIVE) H 12/20/17 18:35 Urine Glucose (UA) NEGATIVE mg/dL (NEGATIVE) 12/20/17 18:35 Urine Ketones TRACE mg/dL (NEGATIVE) 12/20/17 18:35 Urine Blood MODERATE (NEGATIVE) H 12/20/17 18:35 Urine Nitrate NEGATIVE (NEGATIVE) 12/20/17 18:35 Urine Bilirubin NEGATIVE (NEGATIVE) 12/20/17 18:35 Urine Urobilinogen 0.2 E.U./dL (0.2 - 1.0) 12/20/17 18:35 Ur Leukocyte Esterase MODERATE (NEGATIVE) H 12/20/17 18:35 Urine RBC 5-10 /hpf (0-5) H 12/20/17 18:35 Urine WBC >100 /hpf (0-5) H 12/20/17 18:35 Ur Epithelial Cells NONE SEEN /lpf (FEW) 12/20/17 18:35 Urine Bacteria MODERATE /hpf (NONE SEEN) H 12/20/17 18:35 Ur Random Sodium 66 mmol/L 12/21/17 13:30 Urine Creatinine 63.6 mg/dl 12/21/17 13:30 Urine Microalbumin 58.8 12/21/17 13:30 Microalb/Creat Ratio 92.5 12/21/17 13:30 - Physical Exam Vitals and I&O: Vital Signs Temp 98 F 12/25/17 12:55 Pulse 79 12/25/17 12:55 Resp 19 12/25/17 12:55 BP 137/73 12/25/17 12:55 Pulse Ox 100 12/25/17 12:55 Intake & Output 12/24/17 12/25/17 12/25/17 18:59 06:59 18:59 Intake Total 1353.333 Balance 1353.333 Weight (lbs) 60.328 kg 55.792 kg Intake: Intake, IV Amount 1353.333 Sodium Chloride 0.9% 1, 1353.333 000 ml @ 100 mls/hr IV . Q10H [facility] Rx#:[id number] Other: # Voids 2 Weight Source Estimated Bedscale Active Medications: Current Medications Acetaminophen (Tylenol 650mg/20.3ml Suspension) 650 mg PO Q4H PRN PRN Reason: Mild pain/Fever >=100F Stop: 02/19/18 04:28 Last Admin: 12/23/17 10:07 Dose: 650 mg Albuterol/Ipratropium (Duoneb Neb) 3 ml HHN [id number] [facility] Stop: 02/19/18 14:59 Last Admin: 12/25/17 10:20 Dose: Not Given Insulin Aspart (Novolog Insulin Sliding Scale) 0 units SUBQ Q6HR CECIL PRN Reason: Protocol Stop: 02/19/18 07:36 Last Admin: 12/25/17 12:49 Dose: Not Given Levofloxacin (Levaquin) 500 mg PO DAILY [facility] Stop: 02/22/18 08:59 Last Admin: 12/25/17 09:42 Dose: 500 mg Lorazepam (Ativan) 0.5 mg IVP Q6HR PRN; Protocol PRN Reason: Anxiety Stop: 02/19/18 07:41 Last Admin: 12/25/17 00:43 Dose: 0.5 mg General: no acute distress, well developed, well nourished HEENT: atraumatic, normocephalic, PERRLA, EOMI Neck: supple, no thyromegaly Cardiovascular: S1S2, regular Lungs: clear to auscultation bilaterally, clear to percussion Abdomen: soft, no tender, no distended Extremities: no cyanosis, no clubbing, no edema Neurological: awake, oriented Skin: intact Infectious Disease Assmt/Plan - Problem List Patient Problems: All Active Problems ELEVATED WBC WITH COUGH (Acute) - Assessment Assessment: Current Active Problems Problem Status Onset ELEVATED WBC WITH COUGH Acute 1. Left lower lobe pneumonia. 2. UTI. 3. Leukocytosis. improved. 4. Elevated BUN/creatinine, AK I resolving. 5. Hyperlipidemia 6. Dementia. 7. Chronic lung changes. 8. Hypertension. 9. Diabetes mellitus type 2 10. C diff toxin positive, but there is no diarrhea. likely carrier stage. - Plan Plan: Change levaquin to augmentin po for 5 days. Continue same medication. DVT prophylaxis. DC to SNF. No need of isolation.. Nutritional Asmnt/Malnutr-PDOC - Dietary Evaluation Malnutrition Findings (Please click <Entered> for more info): Nutritional Asmnt/Malnutrition Start: 12/21/17 15: 47 Text: Status: Active Freq: Document 12/21/17 15:47 LCHENG (Rec: 12/21/17 16:07 [email or web address]) Nutritional Asmnt/Malnutrition Patient General Information Nutritional Screening High Risk Diagnosis PNA, UTI Pertinent Medical Hx/Surgical Hx HTn, dyslipidemia, arthritis, dementia, PEG/Gtube Subjective Information Pt seen resting in bed at time of visit. TF running at 60ml/ hr. Current Diet Order/ Nutrition Support Diabetisource AC 60ml/hr x 20hr, providing 1440kcal and 72g protein Pertinent Medications novolog, Nacl 0.9% Pertinent Labs 12/20 Na 132, K 5.4, BUN 88, Cr 2.5, glucose 163, 12/21 POC 160-189 Nutritional Hx/Data Height 1.68 m Height (Calculated Centimeters) 167.6 Current Weight (lbs) 54.431 kg Weight (Calculated Kilograms) 54.4 Weight (Calculated Grams) 31312.1 [place] Body Weight 142 Body Mass Index (BMI) 19.3 Weight Status Approriate GI Symptoms GI Symptoms Diarrhea Last BM 12/21 x 3 Skin Integrity/Comment: ecchymosis at bilateral upper extremities Estimated Nutritional Goals BEE in Kcals: Using Current wt Calories/Kcals/Kg 25-30 Kcals Calculated 2360-7730 Protein: Using Current wt Protein g/k.1-1.3 Protein Calculated 60-72 Fluid: ml 1485-1760ml (1ml/kcal) Nutritional Problem 1. Problem Problem altered nutrition related labs Etiology electrolytes imbalance, renal dysfunction, hyperglycemia Signs/Symptoms: Na 132, K 5.4, BUN 88, Cr 2.5, glucose 163, POC 160-189 Malnutrition Alert Protein-Calorie Malnutrition N/A Is there a minimum of two criteria No selected? Query Text:Check all the applicable criteria. A minimum of two criteria are recommended for diagnosis of either severe or non-severe malnutrition. Intervention/Recommendation Comments 1. Considering decrease TF rate to 55ml/hr x 20hr, providing 1320kcal and 66g protein, if BUN/Cr, glucose continue high. 2. Monitor TF rate, tolerance, wt weekly, skin integrity and labs 3. F/U as high risk in 2-3 days, 12/23-12/24 Expected Outcomes/Goals Expected Outcomes/Goals 1. Pt to meet at least 75% of nutritional needs via nutrition support with tolerance 2. Wt stability, skin to remain intact, labs to approach WNL.
[2017-12-25] MEDS ORDERED: Amoxicillin/Clavulanat 875/125 Tab PO SCH (17:00)
== END 2017-12-25 14:00 | DRG 871 ==
LOC: ER 17:37 → MSI 21:00
PROVIDERS: ADMIT Internal Medicine Infectious Disease; ATTEND Internal Medicine Infectious Disease
DX: A41.9 Sepsis, unspecified organism (principal); J96.90 Respiratory failure, unspecified, unspecified whether with hypoxia or hypercapnia; J18.1 Lobar pneumonia, unspecified organism; G93.41 Metabolic encephalopathy; N39.0 Urinary tract infection, site not specified; N17.9 Acute kidney failure, unspecified; E46 Unspecified protein-calorie malnutrition; E87.1 Hypo-osmolality and hyponatremia; R47.01 Aphasia; E78.5 Hyperlipidemia, unspecified; D50.9 Iron deficiency anemia, unspecified; M19.90 Unspecified osteoarthritis, unspecified site; E11.22 Type 2 diabetes mellitus with diabetic chronic kidney disease; I12.9 Hypertensive chronic kidney disease with stage 1 through stage 4 chronic kidney disease, or unspecified chronic kidney disease; N18.3 Chronic kidney disease, stage 3 (moderate); F20.9 Schizophrenia, unspecified; R13.10 Dysphagia, unspecified; E03.9 Hypothyroidism, unspecified; E87.5 Hyperkalemia; E86.0 Dehydration; I25.119 Atherosclerotic heart disease of native coronary artery with unspecified angina pectoris; K21.0 Gastro-esophageal reflux disease with esophagitis; G30.9 Alzheimer's disease, unspecified; F02.80 Dementia in other diseases classified elsewhere, unspecified severity, without behavioral disturbance, psychotic disturbance, mood disturbance, and anxiety; D63.8 Anemia in other chronic diseases classified elsewhere; Z93.1 Gastrostomy status; Z82.49 Family history of ischemic heart disease and other diseases of the circulatory system
CPT/HCPCS: 36415-UA; 36600-90; 71045-TC; 76770-TC; 80048-TC; 80053-TC; 81001-TC; 81015-TC; 82043-90; 82550-TC; 82570-TC; 82803-TC; 82948-90; 83036-90; 83605; 83735-TC; 83880-TC; 83930-90; 84100-TC; 84300-TC; 84443-TC; 84484-TC; 84550-TC; 85025-TC; 85610-TC; 85730-TC; 87046-90; 87086-90; 87230-TC; 90732; 93005; 94760; J0456; J0696; J1815; J1956; J2060; J3475; J7030; J7042; Z7610